=== PATIENT | female | born 1970 | race Caucasian/White ===

== ENCOUNTER 2021-10-07 12:07 | Outpatient (REF) | payer MEDICARE, MEDICAID, SELFPAY ==
[2021-10-07 14:28] LABS: Binax Internal Control QC Valid; Binax Lot number: 9864; Binax Now Covid-19 Ag Negative (Negative)
== END 2021-10-07 12:08 | disposition home or self-care (01) ==
LOC: HO.LAB 12:07
PROVIDERS: Visit Provider Internal Medicine
DX: Z20.822 Contact with and (suspected) exposure to COVID-19 (principal)
CPT/HCPCS: C9803

== ENCOUNTER 2024-11-28 15:59 | Outpatient (REF) | payer MEDICAID, SELFPAY ==
--- OUTSIDE RECORDS SUMMARY | 2024-11-28 19:17 | XMS_ITS | Continuity of Care Document ---
Author Organization [facility] Address [address] [place] [address]- Care Team Providers Care Geochemist Name Role Phone Kianna GARCIA, Madeline Garcia Primary Care Physic andres Encounter [facility] Date(s): 10/03/24 - 11/02/24 [facility] [address], [place] [address] Encounter Type: Triage Allergies, Adverse Reactions, Alerts Substance Criticality Severity Reaction Reaction Severity Status morphine Active Midrin Active Keflex Active Flagyl Active NSAIDs Active Immunizations Given and Recorded Vaccine Date Status Refusal Reason zoster vaccine, inactivated 08/01/22 Recorded SARS-CoV-2 (COVID-19) mRNA BNT-162b2 vac 04/13/21 Recorded SARS-CoV-2 (COVID-19) mRNA BNT-162b2 vac 03/15/21 Recorded Medications Advair HFA 115 mcg / 21 mcg 2 puffs, Inhalation, 2 times a day, # 60 each, 3 Refills, Maintenance, 09/29/23 5:10:00 PM EST, Aerosol, [facility] #[id number], Partial fill upon patient request if the prescription is for a schedule II opioid drug., 2 puffs Inhalation 2 times a day, 175, cm, 09/20/23 13:34:00 EST, Height Start Date: 09/29/23 Status: Ordered Quantity: 60.0 Unit: each Repeat number: 4 Indication: Moderate persistent asthma, uncomplicated Aerochamber Aerochamber, See Instructions, # 1 each, Refills 1, Tot. Refills 1, Maintenance, Use as directed with inhaler. DX J45.9, Asthma, 08/19/22 2:51:00 PM EST, Supply, 175.3, cm, 08/11/22 16:29:00 EST, Height Start Date: 08/19/22 Status: Ordered Quantity: 1.0 Unit: each Repeat number: 2 amLODIPine 5 mg oral tablet 1 tablet, By Mouth, Daily, # 90 tablet, 1 Refills, Maintenance, 09/12/24 4:12:00 PM EST, [facility] #[id number], 175, cm, 04/29/24 12:53:00 EDT, Height Start Date: 09/12/24 Status: Ordered Quantity: 90.0 Unit: tablet Repeat number: 1 cholestyramine 4 gm/5 gm oral powder for reconstitution 1 pack/packet, By Mouth, 2 times a day, # 60 pack/packet, 11 Refills, Maintenance, 03/13/23 9:25:00 AM EDT, REC Powder, [facility]/pharmacy #[id number], 175.3, cm, 01/03/23 14:03:00 EDT, Height Start Date: 03/13/23 Stop Date: 03/07/24 Status: Ordered Quantity: 60.0 Unit: pack/packet Repeat number: 12 diazepam 10 mg oral tablet 10 mg, 1, tablet, By Mouth, 3 times a day, may fill at a lesser amount MA PROCESSING ANALYST 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 Refills 0, Maintenance, 03/12/24 6:28:00 AM EDT, Route to Pharmacy Electronically, [facility] #[id number], 175, cm, 11/29/23 12:13:00 EST, Height Start Date: 03/12/24 Stop Date: 04/09/24 Status: Ordered Quantity: 84.0 Unit: tablet Repeat number: 1 diazepam 10 mg oral tablet 10 mg, 1, tablet, By Mouth, 3 times a day, # 84 tablet, Refills 0, Tot. Refills 0, Maintenance, 09/03/24 12:53:00 PM EST, Route to Pharmacy Electronically, [facility] #[id number], 175, cm, 04/29/24 12:53:00 EDT, Height Start Date: 09/03/24 Stop Date: 10/01/24 Status: Ordered Quantity: 84.0 Unit: tablet Repeat number: 1 Flonase Allergy Relief 50 mcg/inh nasal spray See Instructions, 50 mcg Daily, # 16 Gm, 1 Refills, Maintenance, 07/05/23 8:42:00 PM EDT, [id number], Partial fill upon patient request if the prescription is for a schedule II opioid drug., 175.3, cm, 01/03/23 14:03:00 EDT, Height Start Date: 07/05/23 Status: Ordered Quantity: 16.0 Unit: g Repeat number: 2 Flovent HFA 110 mcg/inh inhalation aerosol 2 puffs, Inhalation, 2 times a day, # 12 Gm, 3 Refills, Maintenance, 02/08/22 2:29:00 PM EDT, Aerosol, [facility]/pharmacy #[id number], Partial fill upon patient request if the prescription is for a schedule II opioid drug., 175.3, cm, 06/02/21 13:48:00 EDT, Height Start Date: 02/08/22 Status: Ordered Quantity: 12.0 Unit: g Repeat number: 4 Golytely - oral powder for reconstitution 240 mL, By Mouth, Every 10 minutes, # 1 each, 0 Refills, Maintenance, 04/29/24 1:19:00 PM EDT, REC Powder, [facility] #[id number], Partial fill upon patient request if the prescription is for a schedule II opioid drug., 240 mL By Mouth Every 10 minutes, 175, cm, 04/29/24 12:53:00 EDT, Height Start Date: 04/29/24 Status: Ordered Quantity: 1.0 Unit: each Repeat number: 1 Humira Pen 40 mg/0.4 mL subcutaneous kit = 40 mg, Subcutaneous Injection, Every 14 days, # 2 each, 11 Refills, Maintenance, 01/31/24 1:18:00 PM EDT, [facility] #[id number], Partial fill upon patient request if the prescription is for a schedule II opioid drug., 175, cm, 11/29/23 12:13:00 EST, Height Start Date: 01/31/24 Status: Ordered Quantity: 2.0 Unit: each Repeat number: 12 hydrochlorothiazide-lisinopril 12.5 mg-20 mg oral tablet 1 tablet, By Mouth, Daily, # 90 tablet, 1 Refills, Maintenance, 09/12/24 4:12:00 PM EST, [facility] #[id number], 90, TAKE 1 TABLET BY MOUTH DAILY, 175, cm, 04/29/24 12:53:00 EDT, Height Start Date: 09/12/24 Status: Ordered Quantity: 90.0 Unit: tablet Repeat number: 1 Lyrica 225 mg oral capsule 1 capsule = 225 mg, By Mouth, 2 times a day, masspat checked DNF: 07/22/2024, # 168 capsule, 1 Refills, Maintenance, 12/30/24 12:21:00 PM EDT, Capsule, [facility] #[id number], 175, cm, 04/29/24 12:53:00 EDT, Height Start Date: 12/30/24 Stop Date: 06/16/25 Status: Ordered Quantity: 168.0 Unit: capsule Repeat number: 2 Lyrica 225 mg oral capsule 1 capsule = 225 mg, By Mouth, 2 times a day, for 84 days, masspat checked DNF: 07/22/2024, # 168 capsule, 1 Refills, Hard Stop 12/30/24 12:21:00 PM EDT, 07/15/24 12:21:00 PM EDT, Capsule, [facility] #[id number], 175, cm, 04/29/24 12:53:00 EDT, Height Start Date: 07/15/24 Stop Date: 12/30/24 Status: Ordered Quantity: 168.0 Unit: capsule Repeat number: 2 methadone 10 mg oral tablet See Instructions, 2 tablet By Mouth in the morning. 1 tablet at lunch time, and 1 tablet at bedtimefor 14 days. Diagnosis: Chronic pain, # 56 tablet, 0 Refills, Maintenance, 10/21/24 12:21:00 PM EST,[facility] #[id number], 175, cm, 04/29/24 12:53:00 EDT, Height Start Date: 10/21/24 Status: Ordered Quantity: 56.0 Unit: tablet Repeat number: 1 Indication: Unspecified abdominal pain oxyCODONE 20 mg oral tablet 1 tablet = 20 mg, By Mouth, 4 times a day, PRN Pain , Moderate, for 14 days, # 56 tablet, 0 Refills, Hard Stop 11/04/24 12:21:00 PM EST, 10/21/24 12:21:00 PM EST, [facility] #[id number], MassPAT checked, 175, cm, 04/29/24 12:53:00 EDT, Height Start Date: 10/21/24 Stop Date: 11/04/24 Status: Ordered Quantity: 56.0 Unit: tablet Repeat number: 1 Indication: Unspecified abdominal pain pantoprazole 40 mg oral delayed release tablet 1 tablet, By Mouth, 2 times a day, # 180 tablet, 3 Refills, Maintenance, 06/19/24 1:33:00 PM EDT, 175, cm, 04/29/24 12:53:00 EDT, Height Start Date: 06/19/24 Status: Ordered Quantity: 180.0 Unit: tablet Repeat number: 4 penciclovir 1% topical cream See Instructions, APPLY TO THE AFFECTED AREA TOPICALLY EVERY 2 HOURS WHILE AWAKE FOR 4 DAYS, # 5 Gm, 0 Refills, Maintenance, 10/03/24 12:50:00 PM EST, [facility] #[id number], 7, APPLY TO THE AFFECTED AREA TOPICALLY EVERY 2 HOURS WHILE AWAKE FOR 4 DAYS, 175, cm, 04/29/24 12:53:00 EDT, Height Start Date: 10/03/24 Status: Ordered Quantity: 5.0 Unit: g Repeat number: 1 sertraline 100 mg oral tablet 1 tablet, By Mouth, Daily, # 90 tablet, 6 Refills, Maintenance, 03/04/24 10:15:00 AM EDT, [facility] #[id number], 175, cm, 11/29/23 12:13:00 EST, Height Start Date: 03/04/24 Status: Ordered Quantity: 90.0 Unit: tablet Repeat number: 1 SUMAtriptan 100 mg oral tablet 1 tablet, By Mouth, Daily, PRN NEEDED FOR MIGRAINE MAY REPEAT DOSE AFTER 2 HOURS UP TO A MAX OF 2, # 9 tablet, 3 Refills, Maintenance, 03/02/23 9:06:00 PM EDT, [facility]/pharmacy #[id number], 175.3, cm, 04/11/23 14:03:00 EDT, Height Start Date: 03/02/23 Status: Ordered Quantity: 9.0 Unit: tablet Repeat number: 4 tubing for nebulizer tubing for nebulizer, See Instructions, # 1 each, Refills 0, Tot. Refills 0, Maintenance, use as directed, 03/06/14 12:03:59 PM EDT, Compound Start Date: 03/06/14 Status: Ordered Quantity: 1.0 Unit: each Repeat number: 1 valACYclovir 500 mg oral tablet 1, tablet, By Mouth, Every 12 hours, # 6 tablet, Refills 3, Maintenance, 10/03/24 12:50:00 PM EST, Route to Pharmacy Electronically, [facility] #[id number], 175, cm, 04/29/24 12:53:00 EDT, Height Start Date: 10/03/24 Stop Date: 10/06/24 Status: Ordered Quantity: 6.0 Unit: tablet Repeat number: 1 Ventolin HFA 108 mcg/inh inhalation aerosol with adapter 2 puffs, Inhalation, Every 4 hours, PRN for wheezing, One for work and one for home, # 2 each, 3 Refills, Maintenance, 07/02/24 3:06:00 PM EDT, Aerosol, [facility] #[id number], Partial fill upon patient request if the prescription is for a schedule II opioid drug., 175, cm, 04/29/24 12:53:00 EDT, Height Start Date: 07/02/24 Status: Ordered Quantity: 2.0 Unit: each Repeat number: 4 Ventolin HFA 108 mcg/inh inhalation aerosol with adapter 2 puffs, Inhalation, Every 4 hours, # 2 each, 1 Refills, Soft Stop, 07/06/22 6:28:00 AM EDT, [facility]/pharmacy #[id number], 175.3, cm, 05/05/22 16:51:00 EDT, Height Start Date: 07/06/22 Status: Ordered Quantity: 2.0 Unit: each Repeat number: 2 Vitamin D3 50,000 intl units oral capsule 1 capsule, By Mouth, Every week, # 4 capsule, 5 Refills, Maintenance, 08/28/24 6:38:00 AM EST, [facility] #[id number], 175, cm, 04/29/24 12:53:00 EDT, Height Start Date: 08/28/24 Status: Ordered Quantity: 4.0 Unit: capsule Repeat number: 6 Problem List Condition Confirmation Course Effective Dates Status Health Status Informant Acute conjunctivitis, right eye Confirmed Active Allergic rhinitis Confirmed Active Anxiety 1 Confirmed Active Asthma Confirmed Active Blurry vision Confirmed Active Cervical radiculopathy Confirmed Active Chronic pain 2, 3, 4, 5 Confirmed Active Community acquired pneumonia of lower lobe of lung Confirmed Active Community acquired pneumonia Confirmed Active CAP (community acquired pneumonia) Confirmed Active Chronic, continuous use of opioids Confirmed Active Crohn's disease (HCC) 6 Confirmed Active Essential hypertension 7 Confirmed Active Family history of brain aneurysm Confirmed Active Chronic fatigue Confirmed Active Fibromyalgia Confirmed Active JONAH (generalized anxiety disorder) Confirmed Active Headache Confirmed Active Hypertriglyceridemia Confirmed Active Ileostomy (HCC) 8 Confirmed Active Left-sided weakness Confirmed Active Lesion of nose Confirmed Active Anxiety and depression Confirmed Active Moderate persistent asthma Confirmed Active Actinic keratoses Confirmed Active Multiple joint pain Confirmed Active Obese class I Confirmed Active Persistent depressive disorder Confirmed Active Tinnitus Confirmed Active Vertigo Confirmed Active 1Bangelita Lubin, therapist 2managed by Dr Stratton 3Jeliel Veronica NP pain management at [facility] 4opioids since 2006, 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 6Dr [facility] 7since PI [id number]/13 Social History Social History Type Response Smoking Status Former smoker; Other : quit 2011; entered on: 05/27/14 Sex Female Sex Representation Female (finding) Patient Care team information Care Team Personnel Name: Kianna GARCIA, Madeline Garcia Position: [facility] Physician - Primary Care Member Role: PCP Address: [address] [place] [phone]- Telecom: Name: Theresa Clinton NP Position: [facility] Associate Professional Member Role: Primary Care Nurse Address: [address] [place] [address] Drive [address] [place] [address]- Telecom: Name: Jaiden Estevez RN Position: [facility] RN Member Role: Primary Care Nurse Name: Perlita Acevedo RN Position: [facility] CLARISSE RN W/OE and Tasks Member Role: Primary Care Nurse Name: Lety Gutierrez RN Position: [facility] AMB Nurse Member Role: Primary Care Nurse Care Team Related Persons Name: VESTA STAFFORD Name: RUY LOUISE Name: ERIN GLEASON Insurance Providers Guarantor name: [facility] Information #: 1 Payer: [facility] Member Number: NA Policy Number: NA Group Number: NA
--- OUTSIDE RECORDS SUMMARY | 2024-11-28 19:17 | XMS_ITS | Continuity of Care Document ---
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 Date(s): 10/21/24 - 11/20/24 [facility] [address] [place] [address] Encounter Type: Triage Allergies, Adverse Reactions, Alerts Substance Criticality Severity Reaction Reaction Severity Status morphine Active Midrin Active Keflex Active NSAIDs Active Flagyl Active Immunizations Given and Recorded Vaccine Date Status Refusal Reason zoster vaccine, inactivated 08/01/22 Recorded SARS-CoV-2 (COVID-19) mRNA BNT-162b2 vac 04/13/21 Recorded SARS-CoV-2 (COVID-19) mRNA BNT-162b2 vac 03/15/21 Recorded Medications Advair HFA 115 mcg / 21 mcg 2 puffs, Inhalation, 2 times a day, # 60 each, 3 Refills, Maintenance, 09/29/23 5:10:00 PM EST, Aerosol, [facility] #[id number], Partial fill upon patient request if the prescription is for a schedule II opioid drug., 2 puffs Inhalation 2 times a day, 175, cm, 09/20/23 13:34:00 EST, Height Start Date: 09/29/23 Status: Ordered Quantity: 60.0 Unit: each Repeat number: 4 Indication: Moderate persistent asthma, uncomplicated Advair HFA 115 mcg / 21 mcg See Instructions, USE 2 INHALATIONS BY MOUTH TWICE DAILY, # 12 Gm, 0 Refills, Maintenance, 11/04/24 8:09:00 PM EST, [facility] #[id number], 30, USE 2 INHALATIONS BY MOUTH TWICE DAILY, 175, cm, 04/29/24 12:53:00 EDT, Height Start Date: 11/04/24 Status: Ordered Quantity: 12.0 Unit: g Repeat number: 1 Aerochamber Aerochamber, See Instructions, # 1 each, [...] 1 Refills, Maintenance, 09/12/24 4:12:00 PM EST, [facility] #[id number], 175, cm, 04/29/24 12:53:00 EDT, Height Start Date: 09/12/24 Status: Ordered Quantity: 90.0 Unit: tablet Repeat number: 1 cholestyramine 4 gm/5 gm oral powder for reconstitution 1 pack/packet, By Mouth, 2 times a day, # 60 pack/packet, 11 Refills, Maintenance, 03/13/23 9:25:00 AM EDT, REC Powder, [facility]/pharmacy #[id number], 175.3, cm, 01/03/23 14:03:00 EDT, Height Start Date: 03/13/23 Stop Date: 03/07/24 Status: Ordered Quantity: 60.0 Unit: pack/packet Repeat number: 12 diazepam 10 mg oral tablet 10 mg, 1, tablet, By Mouth, 3 times a day, may fill at a lesser amount [place] ABRASIVES SALES 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 Refills 0, Maintenance, 03/12/24 6:28:00 AM EDT, Route to Pharmacy Electronically, [facility] #[id number], 175, cm, 11/29/23 12:13:00 EST, Height Start Date: 03/12/24 Stop Date: 04/09/24 Status: Ordered Quantity: 84.0 Unit: tablet Repeat number: 1 diazepam 10 mg oral tablet 10 mg, 1, tablet, By Mouth, 3 times a day, # 84 tablet, Refills 0, Tot. Refills 0, Maintenance, 09/03/24 12:53:00 PM EST, Route to Pharmacy Electronically, [facility] #[id number], 175, cm, 04/29/24 12:53:00 EDT, Height Start Date: 09/03/24 Stop Date: 10/01/24 Status: Ordered Quantity: 84.0 Unit: tablet Repeat number: 1 Flonase Allergy Relief 50 mcg/inh nasal spray See Instructions, 50 mcg Daily, # 16 Gm, 1 Refills, Maintenance, 07/05/23 8:42:00 PM EDT, [facility]/pharmacy #[id number], Partial fill upon patient request if the prescription is for a schedule II opioid drug., 175.3, cm, 01/03/23 14:03:00 EDT, Height Start Date: 07/05/23 Status: Ordered Quantity: 16.0 Unit: g Repeat number: 2 Flovent HFA 110 mcg/inh inhalation aerosol 2 puffs, Inhalation, 2 times a day, # 12 Gm, 3 Refills, Maintenance, 02/08/22 2:29:00 PM EDT, Aerosol, [facility]/pharmacy #[id number], Partial fill upon patient request if the prescription is for a schedule II opioid drug., 175.3, cm, 06/02/21 13:48:00 EDT, Height Start Date: 02/08/22 Status: Ordered Quantity: 12.0 Unit: g Repeat number: 4 Golytely - oral powder for reconstitution 240 mL, By Mouth, Every 10 minutes, # 1 each, 0 Refills, Maintenance, 04/29/24 1:19:00 PM EDT, REC Powder, [facility] #[id number], Partial fill upon patient request if the [...] 11 Refills, Maintenance, 01/31/24 1:18:00 PM EDT, [facility] #[id number], Partial fill upon patient request if the prescription is for a schedule II opioid drug., 175, cm, 11/29/23 12:13:00 EST, Height Start Date: 01/31/24 Status: Ordered Quantity: 2.0 Unit: each Repeat number: 12 hydrochlorothiazide-lisinopril 12.5 mg-20 mg oral tablet 1 tablet, By Mouth, Daily, # 90 tablet, 1 Refills, Maintenance, 09/12/24 4:12:00 PM EST, [facility] #[id number], 90, TAKE 1 TABLET BY MOUTH DAILY, 175, cm, 04/29/24 12:53:00 EDT, Height Start Date: 09/12/24 Status: Ordered Quantity: 90.0 Unit: tablet Repeat number: 1 Lyrica 225 mg oral capsule 1 capsule = 225 mg, By Mouth, 2 times a day, masspat checked DNF: 07/22/2024, # 168 capsule, 1 Refills, Maintenance, 12/30/24 12:21:00 PM EDT, Capsule, [facility] #[id number], 175, cm, 04/29/24 12:53:00 EDT, Height Start Date: 12/30/24 Stop Date: 06/16/25 Status: Ordered Quantity: 168.0 Unit: capsule Repeat number: 2 Lyrica 225 mg oral capsule 1 capsule = 225 mg, By Mouth, 2 times a day, for 84 days, masspat checked DNF: 07/22/2024, # 168 capsule, 1 Refills, Hard Stop 12/30/24 12:21:00 PM EDT, 07/15/24 12:21:00 PM EDT, Capsule, [facility] #[id number], 175, cm, 04/29/24 12:53:00 EDT, Height Start Date: 07/15/24 Stop Date: 12/30/24 Status: Ordered Quantity: 168.0 Unit: capsule Repeat number: 2 methadone 10 mg oral tablet See Instructions, 2 tablet By Mouth in the morning. 1 tablet at lunch time, and 1 tablet at bedtimefor 14 days. Diagnosis: Chronic pain, # 56 tablet, 0 Refills, Maintenance, 2/24/25 1:37:00 PM EST, [facility] #[id number], 175, cm, 04/29/24 12:53:00 EDT, Height Start Date: 11/18/24 Status: Ordered Quantity: 56.0 Unit: tablet Repeat number: 1 Indication: Unspecified abdominal pain oxyCODONE 20 mg oral tablet 1 tablet = 20 mg, By Mouth, 4 times a day, PRN Pain , Moderate, for 14 days, # 56 tablet, 0 Refills, Hard Stop 12/02/24 1:39:00 PM EDT, 11/18/24 1:39:00 PM EST, [facility] #[id number], MassPAT checked, 175, cm, 04/29/24 12:53:00 EDT, Height Start Date: 11/18/24 Stop Date: 12/02/24 Status: Ordered Quantity: 56.0 Unit: tablet Repeat [...] 0 Refills, Maintenance, 10/03/24 12:50:00 PM EST, [facility] #[id number], 7, APPLY TO THE AFFECTED AREA TOPICALLY EVERY 2 HOURS WHILE AWAKE FOR 4 DAYS, 175, cm, 04/29/24 12:53:00 EDT, Height Start Date: 10/03/24 Status: Ordered Quantity: 5.0 Unit: g Repeat number: 1 sertraline 100 mg oral tablet 1 tablet, By Mouth, Daily, # 90 tablet, 6 Refills, Maintenance, 03/04/24 10:15:00 AM EDT, [facility] #[id number], 175, cm, 11/29/23 12:13:00 EST, Height Start Date: 03/04/24 Status: Ordered Quantity: 90.0 Unit: tablet Repeat number: 1 SUMAtriptan 100 mg oral tablet 1 tablet, By Mouth, Daily, PRN NEEDED FOR MIGRAINE MAY REPEAT DOSE AFTER 2 HOURS UP TO A MAX OF 2, # 9 tablet, 3 Refills, Maintenance, 03/02/23 9:06:00 PM EDT, [facility]/pharmacy #[id number], 175.3, cm, 01/03/23 14:03:00 EDT, Height Start Date: 03/02/23 Status: [...] 12:50:00 PM EST, Route to Pharmacy Electronically, [facility] #[id number], 175, cm, 04/29/24 12:53:00 EDT, Height Start Date: 10/03/24 Stop Date: 10/06/24 Status: Ordered Quantity: 6.0 Unit: tablet Repeat number: 1 Ventolin HFA 108 mcg/inh inhalation aerosol with adapter 2 puffs, Inhalation, Every 4 hours, PRN NEEDED FOR WHEEZING 1 FOR WORK AND 1 FOR HOME, # 36 Gm, 3 Refills, Maintenance, 11/11/24 1:07:00 PM EST, [facility] #[id number], 175, cm, 04/29/24 12:53:00 EDT, Height Start Date: 11/11/24 Status: Ordered Quantity: 36.0 Unit: g Repeat number: 1 Vitamin D3 50,000 intl units oral capsule 1 capsule, By Mouth, Every week, # 4 capsule, 5 Refills, Maintenance, 08/28/24 6:38:00 AM EST, [facility] #[id number], 175, cm, 04/29/24 12:53:00 EDT, Height Start [...] 1Bangelita Lubin, therapist 2managed by Dr Stratton 3Juligayatri Veronica NP pain management at [facility] 4opioids since 2006, 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 6Dr [facility]ile[facility] 7since PI [id number]/13 Social History Social History Type Response Smoking Status Former smoker; Other : quit 2011; entered on: 05/27/14 Sex Female Sex Representation Female (finding) Patient Care team information Care Team Personnel Name: Kianna GARCIA, Madeline Garcia Position: [facility] Physician - Primary Care Member Role: PCP Address: [address] [place] [phone]- Telecom: Name: Theresa Clinton NP Position: [facility] Associate Professional Member Role: Primary Care Nurse Address: [address] [place] [address] Drive [address] [place] [address]- Telecom: Name: Jaiden Estevez RN Position: [facility] RN Member Role: Primary Care Nurse Name: Perlita Acevedo RN Position: [facility] ED RN W/OE and Tasks Member Role: Primary Care Nurse Name: Lety Gutierrez RN Position: [facility] AMB Nurse Member Role: Primary Care Nurse Care Team Related Persons Name: VESTA STAFFORD Name: RUY LOUISE Name: ERIN GLEASON Insurance Providers Guarantor name: [facility] [employer] Plan Information #: 1 Payer: [facility] Member Number: NA Policy Number: NA Group Number: NA
--- OUTSIDE RECORDS SUMMARY | 2024-11-28 19:17 | XMS_ITS | Continuity of Care Document ---
Author Organization [facility] Address [address] [place] [address]- Care Team Providers Care Probate Paralegal Name Role Phone Kianna GARCIA, Madeline Garcia Primary Care Physic andres [place] [facility] [place]24/24 [facility] [address] [place], [place] [address] Encounter Type: Triage Allergies, Adverse Reactions, Alerts Substance Criticality Severity Reaction Reaction Severity Status morphine Active Midrin Active NSAIDs Active Keflex Active Flagyl Active Immunizations Given and Recorded Vaccine Date Status Refusal Reason zoster vaccine, inactivated 08/01/22 Recorded SARS-CoV-2 (COVID-19) mRNA BNT-162b2 vac 04/13/21 Recorded SARS-CoV-2 (COVID-19) mRNA BNT-162b2 vac 03/15/21 Recorded Medications Advair HFA 115 mcg / 21 mcg 2 puffs, Inhalation, 2 times a day, # 60 each, 3 Refills, Maintenance, 09/29/23 5:10:00 PM EST, Aerosol, [facility] #[id number], Partial fill upon patient request if the [...] 0 Refills, Maintenance, 11/04/24 8:09:00 PM EST, [facility] #[id number], 30, USE 2 INHALATIONS BY MOUTH TWICE [...] 1 Refills, Maintenance, 09/12/24 4:12:00 PM EST, [facility] #[id number], 175, cm, 04/29/24 12:53:00 EDT, Height Start Date: 09/12/24 Status: Ordered Quantity: 90.0 Unit: tablet Repeat number: 1 cholestyramine 4 gm/5 gm oral powder for reconstitution 1 pack/packet, By Mouth, 2 times a day, # 60 pack/packet, 11 Refills, Maintenance, 03/13/23 9:25:00 AM EDT, REC Powder, [facility]/pharmacy #[id number], 175.3, cm, 01/03/23 14:03:00 EDT, Height Start Date: 03/13/23 Stop Date: 03/07/24 Status: Ordered Quantity: 60.0 Unit: pack/packet Repeat number: 12 diazepam 10 mg oral tablet 10 mg, 1, tablet, By Mouth, 3 times a day, may fill at a lesser amount [place] [employer] 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 Refills 0, Maintenance, 03/12/24 6:28:00 AM EDT, Route to Pharmacy Electronically, [facility] #[id number], 175, cm, 11/29/23 12:13:00 EST, Height Start Date: 03/12/24 Stop Date: 04/09/24 Status: Ordered Quantity: 84.0 Unit: tablet Repeat number: 1 diazepam 10 mg oral tablet 10 mg, 1, tablet, By Mouth, 3 times a day, # 84 tablet, Refills 0, Tot. Refills 0, Maintenance, 09/03/24 12:53:00 PM EST, Route to Pharmacy Electronically, [facility] #[id number], 175, cm, 04/29/24 12:53:00 EDT, Height Start Date: 09/03/24 Stop Date: 10/01/24 Status: Ordered Quantity: 84.0 Unit: tablet Repeat number: 1 Flonase Allergy Relief 50 mcg/inh nasal spray See Instructions, 50 mcg Daily, # 16 Gm, 1 Refills, Maintenance, 07/05/23 8:42:00 PM EDT, [facility]/pharmacy #[id number], Partial fill upon patient request if the prescription is for a schedule II opioid drug., 175.3, cm, 01/03/23 14:03:00 EDT, Height Start Date: 07/05/23 Status: Ordered Quantity: 16.0 Unit: g Repeat number: 2 Flovent HFA 110 mcg/inh inhalation aerosol 2 puffs, Inhalation, 2 times a day, # 12 Gm, 3 Refills, Maintenance, 02/08/22 2:29:00 PM EDT, Aerosol, [facility]/pharmacy #[id number], Partial fill upon patient request if the prescription is for a schedule II opioid drug., 175.3, cm, 06/02/21 13:48:00 EDT, Height Start Date: 02/08/22 Status: Ordered Quantity: 12.0 Unit: g Repeat number: 4 Golytely - oral powder for reconstitution 240 mL, By Mouth, Every 10 minutes, # 1 each, 0 Refills, Maintenance, 04/29/24 1:19:00 PM EDT, REC Powder, [facility] #[id number], Partial fill upon patient request if the [...] 11 Refills, Maintenance, 01/31/24 1:18:00 PM EDT, [facility] #[id number], Partial fill upon patient request if the prescription is for a schedule II opioid drug., 175, cm, 11/29/23 12:13:00 EST, Height Start Date: 01/31/24 Status: Ordered Quantity: 2.0 Unit: each Repeat number: 12 hydrochlorothiazide-lisinopril 12.5 mg-20 mg oral tablet 1 tablet, By Mouth, Daily, # 90 tablet, 1 Refills, Maintenance, 09/12/24 4:12:00 PM EST, [facility] #[id number], 90, TAKE 1 TABLET BY MOUTH DAILY, 175, cm, 04/29/24 12:53:00 EDT, Height Start Date: 09/12/24 Status: Ordered Quantity: 90.0 Unit: tablet Repeat number: 1 Lyrica 225 mg oral capsule 1 capsule = 225 mg, By Mouth, 2 times a day, masspat checked DNF: 07/22/2024, # 168 capsule, 1 Refills, Maintenance, 12/30/24 12:21:00 PM EDT, Capsule, [facility] #[id number], 175, cm, 04/29/24 12:53:00 EDT, Height Start Date: 12/30/24 Stop Date: 06/16/25 Status: Ordered Quantity: 168.0 Unit: capsule Repeat number: 2 Lyrica 225 mg oral capsule 1 capsule = 225 mg, By Mouth, 2 times a day, for 84 days, masspat checked DNF: 07/22/2024, # 168 capsule, 1 Refills, Hard Stop 12/30/24 12:21:00 PM EDT, 07/15/24 12:21:00 PM EDT, Capsule, [facility] #[id number], 175, cm, 04/29/24 12:53:00 EDT, Height Start Date: 07/15/24 Stop Date: 12/30/24 Status: Ordered Quantity: 168.0 Unit: capsule Repeat number: 2 methadone 10 mg oral tablet See Instructions, 2 tablet By Mouth in the morning. 1 tablet at lunch time, and 1 tablet at bedtimefor 14 days. Diagnosis: Chronic pain, # 56 tablet, 0 Refills, Maintenance, 11/18/24 1:37:00 PM EST, [facility] #[id number], 175, cm, 04/29/24 12:53:00 EDT, Height Start Date: 11/18/24 Status: Ordered Quantity: 56.0 Unit: tablet Repeat number: 1 Indication: Unspecified abdominal pain oxyCODONE 20 mg oral tablet 1 tablet = 20 mg, By Mouth, 4 times a day, PRN Pain , Moderate, for 14 days, # 56 tablet, 0 Refills, Hard Stop 12/02/24 1:39:00 PM EDT, 11/18/24 1:39:00 PM EST, [facility] #[id number], MassPAT checked, 175, cm, 04/29/24 12:53:00 EDT, [...] 0 Refills, Maintenance, 10/03/24 12:50:00 PM EST, [facility] #[id number], 7, APPLY TO THE AFFECTED AREA TOPICALLY EVERY 2 HOURS WHILE AWAKE FOR 4 DAYS, 175, cm, 04/29/24 12:53:00 EDT, Height Start Date: 10/03/24 Status: Ordered Quantity: 5.0 Unit: g Repeat number: 1 sertraline 100 mg oral tablet 1 tablet, By Mouth, Daily, # 90 tablet, 6 Refills, Maintenance, 03/04/24 10:15:00 AM EDT, [facility] #[id number], 175, cm, 11/29/23 12:13:00 EST, Height Start Date: 03/04/24 Status: Ordered Quantity: 90.0 Unit: tablet Repeat number: 1 SUMAtriptan 100 mg oral tablet 1 tablet, By Mouth, Daily, PRN NEEDED FOR MIGRAINE MAY REPEAT DOSE AFTER 2 HOURS UP TO A MAX OF 2, # 9 tablet, 3 Refills, Maintenance, 03/02/23 9:06:00 PM EDT, [facility]/pharmacy #[id number], 175.3, cm, 01/03/23 14:03:00 EDT, Height [...] 12:50:00 PM EST, Route to Pharmacy Electronically, [facility] #[id number], 175, cm, 04/29/24 12:53:00 EDT, Height Start Date: 10/03/24 Stop Date: 10/06/24 Status: Ordered Quantity: 6.0 Unit: tablet Repeat number: 1 Ventolin HFA 108 mcg/inh inhalation aerosol with adapter 2 puffs, Inhalation, Every 4 hours, PRN NEEDED FOR WHEEZING 1 FOR WORK AND 1 FOR HOME, # 36 Gm, 3 Refills, Maintenance, 11/11/24 1:07:00 PM EST, [facility] #[id number], 175, cm, 04/29/24 12:53:00 EDT, Height Start Date: 11/11/24 Status: Ordered Quantity: 36.0 Unit: g Repeat number: 1 Vitamin D3 50,000 intl units oral capsule 1 capsule, By Mouth, Every week, # 4 capsule, 5 Refills, Maintenance, 08/28/24 6:38:00 AM EST, [facility] #[id number], 175, cm, 04/29/24 12:53:00 EDT, Height Start [...] related to Crohn's [facility] 7since [facility] [id number] 810/13 Social History Social History Type Response Smoking Status Former smoker; Other : quit 2011; entered on: 05/27/14 Sex Female Sex Representation Female (finding) Patient Care team information Care Team Personnel Name: Kianna GARCIA, Madeline Garcia Position: [facility] Physician - Primary Care Member Role: PCP Address: [address] [place] [address]- Telecom: Name: Theresa Clinton NP Position: [facility] Associate Professional Member Role: Primary Care Nurse Address: [address] [place] [address] Drive [address] [place] [address]- Telecom: Name: Jaiden Estevez RN Position: [facility] RN Member Role: Primary Care Nurse Name: Perlita Acevedo RN Position: [facility] ED RN W/OE and Tasks Member Role: Primary Care Nurse Name: Lety Gutierrez RN Position: [facility] AMB Nurse Member Role: Primary Care Nurse Care Team Related Persons Name: VESTA STAFFORD Name: RUY LOUISE Name: ERIN GLEASON Insurance Providers Guarantor name: [facility] Information #: 1 Payer: [facility] Member Number: NA Policy Number: NA Group Number: NA
--- OUTSIDE RECORDS SUMMARY | 2024-11-28 19:18 | XMS_ITS | Continuity of Care Document ---
Author Organization [facility] Address [address] [place] [address]- [facility] Name Relationship Address Phone ERIN GLEASON father Unknown Unavailable RUY LOUISE spouse Unknown Unavailable ASAD FERRERA Personal Relationship Unknown Unava ilable COUSINEAUVESTA sibling Unknown Unavailabl e BONNIE GLEASON mother Unknown Unavailable Care Team Providers Care Energy Auditor Name Role Phone Kianna GARCIA, Madeline Garcia Primary Care Physic andres Encounter [facility] [place] Date(s): 10/07/24 - 11/06/24 [facility] [address] [place] [address] Encounter Type: Triage Allergies, Adverse Reactions, Alerts [...] Refills, Maintenance, 09/29/23 5:10:00 PM EST, Aerosol, [facility] #[id number], Partial fill upon patient request if the [...] 0 Refills, Maintenance, 11/04/24 8:09:00 PM EST, [facility] #[id number], 30, USE 2 INHALATIONS BY MOUTH TWICE [...] 1 Refills, Maintenance, 09/12/24 4:12:00 PM EST, [facility] #[id number], 175, cm, 04/29/24 12:53:00 EDT, Height Start Date: 09/12/24 Status: Ordered Quantity: 90.0 Unit: tablet Repeat number: 1 cholestyramine 4 gm/5 gm oral powder for reconstitution 1 pack/packet, By Mouth, 2 times a day, # 60 pack/packet, 11 Refills, Maintenance, 03/13/23 9:25:00 AM EDT, REC Powder, [facility] #[id number], 175.3, cm, 01/03/23 14:03:00 EDT, Height Start Date: 03/13/23 Stop Date: 03/07/24 Status: Ordered Quantity: 60.0 Unit: pack/packet Repeat number: 12 diazepam 10 mg oral tablet 10 mg, 1, tablet, By Mouth, 3 times a day, may fill at a lesser amount [place] [employer] SH[employer] SERVICES 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 Refills 0, Maintenance, 03/12/24 6:28:00 AM EDT, Route to Pharmacy Electronically, [facility] #[id number], 175, cm, 11/29/23 12:13:00 EST, Height Start Date: 03/12/24 Stop Date: 04/09/24 Status: Ordered Quantity: 84.0 Unit: tablet Repeat number: 1 diazepam 10 mg oral tablet 10 mg, 1, tablet, By Mouth, 3 times a day, # 84 tablet, Refills 0, Tot. Refills 0, Maintenance, 09/03/24 12:53:00 PM EST, Route to Pharmacy Electronically, [facility] #[id number], 175, cm, 04/29/24 12:53:00 EDT, Height Start Date: 09/03/24 Stop Date: 10/01/24 Status: Ordered Quantity: 84.0 Unit: tablet Repeat number: 1 Flonase Allergy Relief 50 mcg/inh nasal spray See Instructions, 50 mcg Daily, # 16 Gm, 1 Refills, Maintenance, 07/05/23 8:42:00 PM EDT, [facility] #[id number], Partial fill upon patient request if the prescription is for a schedule II opioid drug., 175.3, cm, 01/03/23 14:03:00 EDT, Height Start Date: 07/05/23 Status: Ordered Quantity: 16.0 Unit: g Repeat number: 2 Flovent HFA 110 mcg/inh inhalation aerosol 2 puffs, Inhalation, 2 times a day, # 12 Gm, 3 Refills, Maintenance, 02/08/22 2:29:00 PM EDT, Aerosol, [facility] #[id number], Partial fill upon patient request if the prescription is for a schedule II opioid drug., 175.3, cm, 06/02/21 13:48:00 EDT, Height Start Date: 02/08/22 Status: Ordered Quantity: 12.0 Unit: g Repeat number: 4 Golytely - oral powder for reconstitution 240 mL, By Mouth, Every 10 minutes, # 1 each, 0 Refills, Maintenance, 04/29/24 1:19:00 PM EDT, REC Powder, [facility] #[id number], Partial fill upon patient request if the [...] 11 Refills, Maintenance, 01/31/24 1:18:00 PM EDT, [facility] #[id number], Partial fill upon patient request if the prescription is for a schedule II opioid drug., 175, cm, 11/29/23 12:13:00 EST, Height Start Date: 01/31/24 Status: Ordered Quantity: 2.0 Unit: each Repeat number: 12 hydrochlorothiazide-lisinopril 12.5 mg-20 mg oral tablet 1 tablet, By Mouth, Daily, # 90 tablet, 1 Refills, Maintenance, 09/12/24 4:12:00 PM EST, [facility] #[id number], 90, TAKE 1 TABLET BY MOUTH DAILY, 175, cm, 04/29/24 12:53:00 EDT, Height Start Date: 09/12/24 Status: Ordered Quantity: 90.0 Unit: tablet Repeat number: 1 Lyrica 225 mg oral capsule 1 capsule = 225 mg, By Mouth, 2 times a day, masspat checked DNF: 07/22/2024, # 168 capsule, 1 Refills, Maintenance, 12/30/24 12:21:00 PM EDT, Capsule, [facility] #[id number], 175, cm, 04/29/24 12:53:00 EDT, Height Start Date: 12/30/24 Stop Date: 06/16/25 Status: Ordered Quantity: 168.0 Unit: capsule Repeat number: 2 Lyrica 225 mg oral capsule 1 capsule = 225 mg, By Mouth, 2 times a day, for 84 days, masspat checked DNF: 07/22/2024, # 168 capsule, 1 Refills, Hard Stop 12/30/24 12:21:00 PM EDT, 07/15/24 12:21:00 PM EDT, Capsule, [facility] #[id number], 175, cm, 04/29/24 12:53:00 EDT, Height Start Date: 07/15/24 Stop Date: 12/30/24 Status: Ordered Quantity: 168.0 Unit: capsule Repeat number: 2 methadone 10 mg oral tablet See Instructions, 2 tablet By Mouth in the morning. 1 tablet at lunch time, and 1 tablet at bedtimefor 14 days. Diagnosis: Chronic pain, # 56 tablet, 0 Refills, Maintenance, 2/10/25 8:11:00 AM EST, [facility] #[id number], 175, cm, 04/29/24 12:53:00 EDT, Height Start Date: 11/04/24 Status: Ordered Quantity: 56.0 Unit: tablet Repeat number: 1 Indication: Unspecified abdominal pain oxyCODONE 20 mg oral tablet 1 tablet = 20 mg, By Mouth, 4 times a day, PRN Pain , Moderate, for 14 days, # 56 tablet, 0 Refills, Hard Stop 11/18/24 12:21:00 PM EST, 11/04/24 12:21:00 PM EST, [facility] #[id number], MassPAT checked, 175, cm, 04/29/24 12:53:00 EDT, Height Start Date: 11/04/24 Stop Date: 11/18/24 Status: Ordered Quantity: 56.0 Unit: [...] 0 Refills, Maintenance, 10/03/24 12:50:00 PM EST, [facility] #[id number], 7, APPLY TO THE AFFECTED AREA TOPICALLY EVERY 2 HOURS WHILE AWAKE FOR 4 DAYS, 175, cm, 04/29/24 12:53:00 EDT, Height Start Date: 10/03/24 Status: Ordered Quantity: 5.0 Unit: g Repeat number: 1 sertraline 100 mg oral tablet 1 tablet, By Mouth, Daily, # 90 tablet, 6 Refills, Maintenance, 03/04/24 10:15:00 AM EDT, [facility] #[id number], 175, cm, 11/29/23 12:13:00 EST, Height Start Date: 03/04/24 Status: Ordered Quantity: 90.0 Unit: tablet Repeat number: 1 SUMAtriptan 100 mg oral tablet 1 tablet, By Mouth, Daily, PRN NEEDED FOR MIGRAINE MAY REPEAT DOSE AFTER 2 HOURS UP TO A MAX OF 2, # 9 tablet, 3 Refills, Maintenance, 03/02/23 9:06:00 PM EDT, [facility] #[id number], 175.3, cm, 01/03/23 14:03:00 EDT, [...] 12:50:00 PM EST, Route to Pharmacy Electronically, [facility] #[id number], 175, cm, 04/29/24 12:53:00 EDT, Height Start Date: 10/03/24 Stop Date: 10/06/24 Status: Ordered Quantity: 6.0 Unit: tablet Repeat number: 1 Ventolin HFA 108 mcg/inh inhalation aerosol with adapter 2 puffs, Inhalation, Every 4 hours, PRN for wheezing, One for work and one for home, # 2 each, 3 Refills, Maintenance, 07/02/24 3:06:00 PM EDT, Aerosol, [facility] #[id number], Partial fill upon patient request if the prescription is for a schedule II opioid drug., 175, cm, 04/29/24 12:53:00 EDT, Height Start Date: 07/02/24 Status: Ordered Quantity: 2.0 Unit: each Repeat number: 4 Ventolin HFA 108 mcg/inh inhalation aerosol with adapter 2 puffs, Inhalation, Every 4 hours, # 2 each, 1 Refills, Soft Stop, 07/06/22 6:28:00 AM EDT, [facility] #[id number], 175.3, cm, 05/05/22 16:51:00 EDT, Height Start Date: 07/06/22 Status: Ordered Quantity: 2.0 Unit: each Repeat number: 2 Vitamin D3 50,000 intl units oral capsule 1 capsule, By Mouth, Every week, # 4 capsule, 5 Refills, Maintenance, 08/28/24 6:38:00 AM [facility] #[id number], 175, cm, 04/29/24 12:53:00 EDT, Height Start [...] related to Crohn's [facility] 7since [facility] [id number] 810/13 Social History Social History Type Response Smoking Status Former smoker; Other : quit 2011; entered on: 05/27/14 Sex Female Sex Representation Female (finding) Patient Care team information Care Team Personnel Name: Kianna GARCIA, Madeline Garcia Position: [facility] Physician - Primary Care Member Role: PCP Address: [address] [place] [address]- [place] Telecom: Name: Theresa Clinton NP Position: [facility] Associate Professional Member Role: Primary Care Nurse Address: [address] [place] [address] Drive [address] [place] [address]- [place] Tele[employer]: Name: Jaiden Estevez RN Position: [facility] RN Member Role: Primary Care Nurse Name: Perlita Acevedo RN Position: [facility] ED RN W/OE and Tasks Member Role: Primary Care Nurse Name: Lety Gutierrez RN Position: [facility] AMB Nurse Member Role: Primary Care Nurse Care Team Related Persons Name: VESTA STAFFORD Name: RUY LOUISE Name: ERIN GLEASON Insurance Providers Guarantor name: [facility] Plan Information #: 1 Payer: [facility] Member Number: NA Policy Number: NA Group Number: NA
--- OUTSIDE RECORDS SUMMARY | 2024-11-28 19:18 | XMS_ITS | Continuity of Care Document ---
Author Organization [facility] Address [address] [place] [address]- [facility] Name Relationship Address Phone ERIN GLEASON father Unknown Unavailable RUY LOUISE spouse Unknown Unavailable ASAD FERRERA Personal Relationship Unknown Unava ilable COUSINEAVESTA Aguilar sibling Unknown Unavailabl e BONNIE GLEASON mother Unknown Unavailable Care Team Providers Care Bung Remover Name Role Phone Kianna GARCIA, Madeline Garcia Primary Care Physic andres [place] [facility] [place]/21/24 [place] 11/20/24 [facility] [address] [place] [address] Encounter Type: Triage Allergies, Adverse Reactions, Alerts [...] Refills, Maintenance, 09/29/23 5:10:00 PM EST, Aerosol, [facility] #[id number], Partial fill upon patient request if the [...] 0 Refills, Maintenance, 11/04/24 8:09:00 PM EST, [facility] #[id number], 30, USE 2 INHALATIONS BY MOUTH TWICE [...] 1 Refills, Maintenance, 09/12/24 4:12:00 PM EST, [facility] #[id number], 175, cm, 04/29/24 12:53:00 EDT, Height Start Date: 09/12/24 Status: Ordered Quantity: 90.0 Unit: tablet Repeat number: 1 cholestyramine 4 gm/5 gm oral powder for reconstitution 1 pack/packet, By Mouth, 2 times a day, # 60 pack/packet, 11 Refills, Maintenance, 03/13/23 9:25:00 AM EDT, REC Powder, [facility]/pharmacy #[id number], 175.3, cm, 01/03/23 14:03:00 EDT, Height Start Date: 03/13/23 Stop Date: 03/07/24 Status: Ordered Quantity: 60.0 Unit: pack/packet Repeat number: 12 diazepam 10 mg oral tablet 10 mg, 1, tablet, By Mouth, 3 times a day, may fill at a lesser amount MA FITTING ROOM ASSOCIATE 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 Refills 0, Maintenance, 03/12/24 6:28:00 AM EDT, Route to Pharmacy Electronically, [facility] #[id number], 175, cm, 11/29/23 12:13:00 EST, Height Start Date: 03/12/24 Stop Date: 04/09/24 Status: Ordered Quantity: 84.0 Unit: tablet Repeat number: 1 diazepam 10 mg oral tablet 10 mg, 1, tablet, By Mouth, 3 times a day, # 84 tablet, Refills 0, Tot. Refills 0, Maintenance, 09/03/24 12:53:00 PM EST, Route to Pharmacy Electronically, [facility] #[id number], 175, cm, 04/29/24 12:53:00 EDT, Height Start Date: 09/03/24 Stop Date: 10/01/24 Status: Ordered Quantity: 84.0 Unit: tablet Repeat number: 1 Flonase Allergy Relief 50 mcg/inh nasal spray See Instructions, 50 mcg Daily, # 16 Gm, 1 Refills, Maintenance, 07/05/23 8:42:00 PM EDT, [facility]/pharmacy #[id number], Partial fill upon patient request if the prescription is for a schedule II opioid drug., 175.3, cm, 01/03/23 14:03:00 EDT, Height Start Date: 07/05/23 Status: Ordered Quantity: 16.0 Unit: g Repeat number: 2 Flovent HFA 110 mcg/inh inhalation aerosol 2 puffs, Inhalation, 2 times a day, # 12 Gm, 3 Refills, Maintenance, 02/08/22 2:29:00 PM EDT, Aerosol, [facility]/pharmacy #[id number], Partial fill upon patient request if the prescription is for a schedule II opioid drug., 175.3, cm, 06/02/21 13:48:00 EDT, Height Start Date: 02/08/22 Status: Ordered Quantity: 12.0 Unit: g Repeat number: 4 Golytely - oral powder for reconstitution 240 mL, By Mouth, Every 10 minutes, # 1 each, 0 Refills, Maintenance, 04/29/24 1:19:00 PM EDT, REC Powder, [facility] #[id number], Partial fill upon patient request if the [...] 11 Refills, Maintenance, 01/31/24 1:18:00 PM EDT, [facility] #[id number], Partial fill upon patient request if the prescription is for a schedule II opioid drug., 175, cm, 11/29/23 12:13:00 EST, Height Start Date: 01/31/24 Status: Ordered Quantity: 2.0 Unit: each Repeat number: 12 hydrochlorothiazide-lisinopril 12.5 mg-20 mg oral tablet 1 tablet, By Mouth, Daily, # 90 tablet, 1 Refills, Maintenance, 09/12/24 4:12:00 PM EST, [facility] #[id number], 90, TAKE 1 TABLET BY MOUTH DAILY, 175, cm, 04/29/24 12:53:00 EDT, Height Start Date: 09/12/24 Status: Ordered Quantity: 90.0 Unit: tablet Repeat number: 1 Lyrica 225 mg oral capsule 1 capsule = 225 mg, By Mouth, 2 times a day, masspat checked DNF: 07/22/2024, # 168 capsule, 1 Refills, Maintenance, 12/30/24 12:21:00 PM EDT, Capsule, [facility] #[id number], 175, cm, 04/29/24 12:53:00 EDT, Height Start Date: 12/30/24 Stop Date: 06/16/25 Status: Ordered Quantity: 168.0 Unit: capsule Repeat number: 2 Lyrica 225 mg oral capsule 1 capsule = 225 mg, By Mouth, 2 times a day, for 84 days, masspat checked DNF: 07/22/2024, # 168 capsule, 1 Refills, Hard Stop 12/30/24 12:21:00 PM EDT, 07/15/24 12:21:00 PM EDT, Capsule, [facility] #[id number], 175, cm, 04/29/24 12:53:00 EDT, Height Start Date: 07/15/24 Stop Date: 12/30/24 Status: Ordered Quantity: 168.0 Unit: capsule Repeat number: 2 methadone 10 mg oral tablet See Instructions, 2 tablet By Mouth in the morning. 1 tablet at lunch time, and 1 tablet at bedtimefor 14 days. Diagnosis: Chronic pain, # 56 tablet, 0 Refills, Maintenance, 2/24/25 1:37:00 PM EST, [facility] #[id number], 175, cm, 04/29/24 12:53:00 EDT, Height Start Date: 11/18/24 Status: Ordered Quantity: 56.0 Unit: tablet Repeat number: 1 Indication: Unspecified abdominal pain oxyCODONE 20 mg oral tablet 1 tablet = 20 mg, By Mouth, 4 times a day, PRN Pain , Moderate, for 14 days, # 56 tablet, 0 Refills, Hard Stop 12/02/24 1:39:00 PM EDT, 11/18/24 1:39:00 PM EST, [facility] #[id number], MassPAT checked, 175, cm, 04/29/24 12:53:00 EDT, [...] 0 Refills, Maintenance, 10/03/24 12:50:00 PM EST, [facility] #[id number], 7, APPLY TO THE AFFECTED AREA TOPICALLY EVERY 2 HOURS WHILE AWAKE FOR 4 DAYS, 175, cm, 04/29/24 12:53:00 EDT, Height Start Date: 10/03/24 Status: Ordered Quantity: 5.0 Unit: g Repeat number: 1 sertraline 100 mg oral tablet 1 tablet, By Mouth, Daily, # 90 tablet, 6 Refills, Maintenance, 03/04/24 10:15:00 AM EDT, [facility] #[id number], 175, cm, 11/29/23 12:13:00 EST, Height Start Date: 03/04/24 Status: Ordered Quantity: 90.0 Unit: tablet Repeat number: 1 SUMAtriptan 100 mg oral tablet 1 tablet, By Mouth, Daily, PRN NEEDED FOR MIGRAINE MAY REPEAT DOSE AFTER 2 HOURS UP TO A MAX OF 2, # 9 tablet, 3 Refills, Maintenance, 03/02/23 9:06:00 PM EDT, [facility]/pharmacy #[id number], 175.3, cm, 01/03/23 14:03:00 EDT, [...] 12:50:00 PM EST, Route to Pharmacy Electronically, [facility] #[id number], 175, cm, 04/29/24 12:53:00 EDT, Height Start Date: 10/03/24 Stop Date: 10/06/24 Status: Ordered Quantity: 6.0 Unit: tablet Repeat number: 1 Ventolin HFA 108 mcg/inh inhalation aerosol with adapter 2 puffs, Inhalation, Every 4 hours, PRN NEEDED FOR WHEEZING 1 FOR WORK AND 1 FOR HOME, # 36 Gm, 3 Refills, Maintenance, 11/11/24 1:07:00 PM EST, [facility] #[id number], 175, cm, 04/29/24 12:53:00 EDT, Height Start Date: 11/11/24 Status: Ordered Quantity: 36.0 Unit: g Repeat number: 1 Vitamin D3 50,000 intl units oral capsule 1 capsule, By Mouth, Every week, # 4 capsule, 5 Refills, Maintenance, 08/28/24 6:38:00 AM EST, [facility] #[id number], 175, cm, 04/29/24 12:53:00 EDT, Height Start [...] to Crohn's [facility] 7since PI [id number] 810/13 Social History Social History Type Response Smoking Status Former smoker; Other : quit 2011; entered on: 05/27/14 Sex Female Sex Representation Female (finding) Patient Care team information Care Team Personnel Name: Kianna GARCIA, Madeline Garcia Position: [facility] Physician - Primary Care Member Role: PCP Address: [address] [place] [id number]- Telecom: Name: Theresa Clinton NP Position: [facility] Associate Professional Member Role: Primary Care Nurse Address: [address] [place] [address] Drive [address] [place] [address]- Telecom: Name: Jaiden Estevez RN Position: [facility] RN Member Role: Primary Care Nurse Name: Perlita Acevedo RN Position: [facility] ED RN W/OE and Tasks Member Role: Primary Care Nurse Name: Lety Gutierrez RN Position: [facility] AMB Nurse Member Role: Primary Care Nurse Care Team Related Persons Name: VESTA STAFFORD Name: RUY LOUISE Name: ERIN GLEASON Insurance Providers Guarantor name: [facility] [employer] Plan Information #: 1 Payer: [facility] [place] [facility] Member Number: NA Policy Number: NA Group Number: NA
--- OUTSIDE RECORDS SUMMARY | 2024-11-28 19:18 | XMS_ITS | Continuity of Care Document ---
Author Organization [facility] Address [address] [place] [address]- [facility] Name Relationship Address Phone ERIN GLEASON father Unknown Unavailable RUY LOUISE spouse Unknown Unavailable ASAD FERRERA Personal Relationship Unknown Unava ilable COUSINEAVESTA Aguilar sibling Unknown Unavailabl e BONNIE GLEASON mother Unknown Unavailable Care Team Providers Care Air Export Logistics Manager Name Role Phone Kianna GARCIA, Madeline Garcia Primary Care Physic andres Encounter [facility] [place] Date(s): 10/21/24 - 11/20/24 [facility] [address] [place] [address] Encounter Type: Triage Allergies, Adverse Reactions, Alerts [...] Refills, Maintenance, 09/29/23 5:10:00 PM EST, Aerosol, [facility] #[id number], Partial fill upon patient request if the [...] 0 Refills, Maintenance, 11/04/24 8:09:00 PM EST, [facility] #[id number], 30, USE 2 INHALATIONS BY MOUTH TWICE [...] 1 Refills, Maintenance, 09/12/24 4:12:00 PM EST, [facility] #[id number], 175, cm, 04/29/24 12:53:00 EDT, Height Start Date: 09/12/24 Status: Ordered Quantity: 90.0 Unit: tablet Repeat number: 1 cholestyramine 4 gm/5 gm oral powder for reconstitution 1 pack/packet, By Mouth, 2 times a day, # 60 pack/packet, 11 Refills, Maintenance, 03/13/23 9:25:00 AM EDT, REC Powder, [facility]/pharmacy #[id number], 175.3, cm, 01/03/23 14:03:00 EDT, Height Start Date: 03/13/23 Stop Date: 03/07/24 Status: Ordered Quantity: 60.0 Unit: pack/packet Repeat number: 12 diazepam 10 mg oral tablet 10 mg, 1, tablet, By Mouth, 3 times a day, may fill at a lesser amount MA BUILDING OPERATOR 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 Refills 0, Maintenance, 03/12/24 6:28:00 AM EDT, Route to Pharmacy Electronically, [facility] #[id number], 175, cm, 11/29/23 12:13:00 EST, Height Start Date: 03/12/24 Stop Date: 04/09/24 Status: Ordered Quantity: 84.0 Unit: tablet Repeat number: 1 diazepam 10 mg oral tablet 10 mg, 1, tablet, By Mouth, 3 times a day, # 84 tablet, Refills 0, Tot. Refills 0, Maintenance, 09/03/24 12:53:00 PM EST, Route to Pharmacy Electronically, [facility] #[id number], 175, cm, 04/29/24 12:53:00 EDT, Height Start Date: 09/03/24 Stop Date: 10/01/24 Status: Ordered Quantity: 84.0 Unit: tablet Repeat number: 1 Flonase Allergy Relief 50 mcg/inh nasal spray See Instructions, 50 mcg Daily, # 16 Gm, 1 Refills, Maintenance, 07/05/23 8:42:00 PM EDT, [facility]/pharmacy #[id number], Partial fill upon patient request if the prescription is for a schedule II opioid drug., 175.3, cm, 01/03/23 14:03:00 EDT, Height Start Date: 07/05/23 Status: Ordered Quantity: 16.0 Unit: g Repeat number: 2 Flovent HFA 110 mcg/inh inhalation aerosol 2 puffs, Inhalation, 2 times a day, # 12 Gm, 3 Refills, Maintenance, 02/08/22 2:29:00 PM EDT, Aerosol, [facility]/pharmacy #[id number], Partial fill upon patient request if the prescription is for a schedule II opioid drug., 175.3, cm, 06/02/21 13:48:00 EDT, Height Start Date: 02/08/22 Status: Ordered Quantity: 12.0 Unit: g Repeat number: 4 Golytely - oral powder for reconstitution 240 mL, By Mouth, Every 10 minutes, # 1 each, 0 Refills, Maintenance, 04/29/24 1:19:00 PM EDT, REC Powder, [facility] #[id number], Partial fill upon patient request if the [...] 11 Refills, Maintenance, 01/31/24 1:18:00 PM EDT, [facility] #[id number], Partial fill upon patient request if the prescription is for a schedule II opioid drug., 175, cm, 11/29/23 12:13:00 EST, Height Start Date: 01/31/24 Status: Ordered Quantity: 2.0 Unit: each Repeat number: 12 hydrochlorothiazide-lisinopril 12.5 mg-20 mg oral tablet 1 tablet, By Mouth, Daily, # 90 tablet, 1 Refills, Maintenance, 09/12/24 4:12:00 PM EST, [facility] #[id number], 90, TAKE 1 TABLET BY MOUTH DAILY, 175, cm, 04/29/24 12:53:00 EDT, Height Start Date: 09/12/24 Status: Ordered Quantity: 90.0 Unit: tablet Repeat number: 1 Lyrica 225 mg oral capsule 1 capsule = 225 mg, By Mouth, 2 times a day, masspat checked DNF: 07/22/2024, # 168 capsule, 1 Refills, Maintenance, 12/30/24 12:21:00 PM EDT, Capsule, [facility] #[id number], 175, cm, 04/29/24 12:53:00 EDT, Height Start Date: 12/30/24 Stop Date: 06/16/25 Status: Ordered Quantity: 168.0 Unit: capsule Repeat number: 2 Lyrica 225 mg oral capsule 1 capsule = 225 mg, By Mouth, 2 times a day, for 84 days, masspat checked DNF: 07/22/2024, # 168 capsule, 1 Refills, Hard Stop 12/30/24 12:21:00 PM EDT, 07/15/24 12:21:00 PM EDT, Capsule, [facility] #[id number], 175, cm, 04/29/24 12:53:00 EDT, Height Start Date: 07/15/24 Stop Date: 12/30/24 Status: Ordered Quantity: 168.0 Unit: capsule Repeat number: 2 methadone 10 mg oral tablet See Instructions, 2 tablet By Mouth in the morning. 1 tablet at lunch time, and 1 tablet at bedtimefor 14 days. Diagnosis: Chronic pain, # 56 tablet, 0 Refills, Maintenance, 2/24/25 1:37:00 PM EST, [facility] #[id number], 175, cm, 04/29/24 12:53:00 EDT, Height Start Date: 11/18/24 Status: Ordered Quantity: 56.0 Unit: tablet Repeat number: 1 Indication: Unspecified abdominal pain oxyCODONE 20 mg oral tablet 1 tablet = 20 mg, By Mouth, 4 times a day, PRN Pain , Moderate, for 14 days, # 56 tablet, 0 Refills, Hard Stop 12/02/24 1:39:00 PM EDT, 11/18/24 1:39:00 PM EST, [facility] #[id number], MassPAT checked, 175, cm, 04/29/24 12:53:00 EDT, [...] 0 Refills, Maintenance, 10/03/24 12:50:00 PM EST, [facility] #[id number], 7, APPLY TO THE AFFECTED AREA TOPICALLY EVERY 2 HOURS WHILE AWAKE FOR 4 DAYS, 175, cm, 04/29/24 12:53:00 EDT, Height Start Date: 10/03/24 Status: Ordered Quantity: 5.0 Unit: g Repeat number: 1 sertraline 100 mg oral tablet 1 tablet, By Mouth, Daily, # 90 tablet, 6 Refills, Maintenance, 03/04/24 10:15:00 AM EDT, [facility] #[id number], 175, cm, 11/29/23 12:13:00 EST, Height Start Date: 03/04/24 Status: Ordered Quantity: 90.0 Unit: tablet Repeat number: 1 SUMAtriptan 100 mg oral tablet 1 tablet, By Mouth, Daily, PRN NEEDED FOR MIGRAINE MAY REPEAT DOSE AFTER 2 HOURS UP TO A MAX OF 2, # 9 tablet, 3 Refills, Maintenance, 03/02/23 9:06:00 PM EDT, [facility]/pharmacy #[id number], 175.3, cm, 01/03/23 14:03:00 EDT, [...] 12:50:00 PM EST, Route to Pharmacy Electronically, [facility] #[id number], 175, cm, 04/29/24 12:53:00 EDT, Height Start Date: 10/03/24 Stop Date: 10/06/24 Status: Ordered Quantity: 6.0 Unit: tablet Repeat number: 1 Ventolin HFA 108 mcg/inh inhalation aerosol with adapter 2 puffs, Inhalation, Every 4 hours, PRN NEEDED FOR WHEEZING 1 FOR WORK AND 1 FOR HOME, # 36 Gm, 3 Refills, Maintenance, 11/11/24 1:07:00 PM EST, [facility] #[id number], 175, cm, 04/29/24 12:53:00 EDT, Height Start Date: 11/11/24 Status: Ordered Quantity: 36.0 Unit: g Repeat number: 1 Vitamin D3 50,000 intl units oral capsule 1 capsule, By Mouth, Every week, # 4 capsule, 5 Refills, Maintenance, 08/28/24 6:38:00 AM EST, [facility] #[id number], 175, cm, 04/29/24 12:53:00 EDT, Height Start [...] Active 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 Lubin, therapist 2managed by Dr Strtaton 3Juligayatri Veronica NP pain management at [facility] 4opioids since 2006, 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 6[facility] 7since PI 4020-5921 810/13 Social History Social History Type Response Smoking Status Former smoker; Other : quit 2011; entered on: 05/27/14 Sex Female Sex Representation Female (finding) Patient Care team information Care Team Personnel Name: Kianna GARCIA, Madeline Garcia Position: [facility] Physician - Primary Care Member Role: PCP Address: [address] [place] [phone]- Telecom: Name: Theresa Clinton NP Position: [facility] Associate Professional Member Role: Primary Care Nurse Address: [address] [place] [address] Drive [address] [place] [address]- Telecom: Name: Jaiden Estevez RN Position: [facility] RN Member Role: Primary Care Nurse Name: Perlita Acevedo RN Position: [facility] ED RN W/OE and Tasks Member Role: Primary Care Nurse Name: Lety Gutierrez RN Position: [facility] AMB Nurse Member Role: Primary Care Nurse Care Team Related Persons Name: VESTA STAFFORD Name: RUY LOUISE Name: ERIN GLEASON Insurance Providers Guarantor name: [facility] [employer] Plan Information #: 1 Payer: [facility] [place] Member Number: NA Policy Number: NA Group Number: NA
--- OUTSIDE RECORDS SUMMARY | 2024-11-28 19:18 | XMS_ITS | Continuity of Care Document ---
Author Organization [facility] Address [address] [place] [address]- [facility] Name Relationship Address Phone ERIN GLEASON father Unknown Unavailable RUY LOUISE spouse Unknown Unavailable ASAD FERRERA Personal Relationship Unknown Unava ilable COUSINEAVESTA Aguilar sibling Unknown Unavailabl e BONNIE GLEASON mother Unknown Unavailable Care Team Providers Care Financial Service Professional Name Role Phone Kianna GARCIA, Madeline Garcia Primary Care Physic andres Encounter [facility] Date(s): 10/07/24 - 11/06/24 [facility] [address] [place] [address] Encounter Type: Triage Allergies, Adverse Reactions, Alerts [...] Refills, Maintenance, 09/29/23 5:10:00 PM EST, Aerosol, [facility] #[id number], Partial fill upon patient request if the [...] 0 Refills, Maintenance, 11/04/24 8:09:00 PM EST, [facility] #[id number], 30, USE 2 INHALATIONS BY MOUTH TWICE [...] 1 Refills, Maintenance, 09/12/24 4:12:00 PM EST, [facility] #[id number], 175, cm, 04/29/24 12:53:00 EDT, Height Start Date: 09/12/24 Status: Ordered Quantity: 90.0 Unit: tablet Repeat number: 1 cholestyramine 4 gm/5 gm oral powder for reconstitution 1 pack/packet, By Mouth, 2 times a day, # 60 pack/packet, 11 Refills, Maintenance, 03/13/23 9:25:00 AM EDT, REC Powder, [facility]/pharmacy #[id number], 175.3, cm, 01/03/23 14:03:00 EDT, Height Start Date: 03/13/23 Stop Date: 03/07/24 Status: Ordered Quantity: 60.0 Unit: pack/packet Repeat number: 12 diazepam 10 mg oral tablet 10 mg, 1, tablet, By Mouth, 3 times a day, may fill at a lesser amount MA [employer] OF [employer] 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 Refills 0, Maintenance, 03/12/24 6:28:00 AM EDT, Route to Pharmacy Electronically, [facility] #[id number], 175, cm, 11/29/23 12:13:00 EST, Height Start Date: 03/12/24 Stop Date: 04/09/24 Status: Ordered Quantity: 84.0 Unit: tablet Repeat number: 1 diazepam 10 mg oral tablet 10 mg, 1, tablet, By Mouth, 3 times a day, # 84 tablet, Refills 0, Tot. Refills 0, Maintenance, 09/03/24 12:53:00 PM EST, Route to Pharmacy Electronically, [facility] #[id number], 175, cm, 04/29/24 12:53:00 EDT, Height Start Date: 09/03/24 Stop Date: 10/01/24 Status: Ordered Quantity: 84.0 Unit: tablet Repeat number: 1 Flonase Allergy Relief 50 mcg/inh nasal spray See Instructions, 50 mcg Daily, # 16 Gm, 1 Refills, Maintenance, 07/05/23 8:42:00 PM EDT, [facility]/pharmacy #[id number], Partial fill upon patient request [...] Maintenance, 04/29/24 1:19:00 PM EDT, REC Powder, [facility] #[id number], Partial fill upon patient request if the [...] 11 Refills, Maintenance, 01/31/24 1:18:00 PM EDT, [facility] #[id number], Partial fill upon patient request if the prescription is for a schedule II opioid drug., 175, cm, 11/29/23 12:13:00 EST, Height Start Date: 01/31/24 Status: Ordered Quantity: 2.0 Unit: each Repeat number: 12 hydrochlorothiazide-lisinopril 12.5 mg-20 mg oral tablet 1 tablet, By Mouth, Daily, # 90 tablet, 1 Refills, Maintenance, 09/12/24 4:12:00 PM EST, [facility] #[id number], 90, TAKE 1 TABLET BY MOUTH DAILY, 175, cm, 04/29/24 12:53:00 EDT, Height Start Date: 09/12/24 Status: Ordered Quantity: 90.0 Unit: tablet Repeat number: 1 Lyrica 225 mg oral capsule 1 capsule = 225 mg, By Mouth, 2 times a day, masspat checked DNF: 07/22/2024, # 168 capsule, 1 Refills, Maintenance, 12/30/24 12:21:00 PM EDT, Capsule, [facility] #[id number], 175, cm, 04/29/24 12:53:00 EDT, Height Start Date: 12/30/24 Stop Date: 06/16/25 Status: Ordered Quantity: 168.0 Unit: capsule Repeat number: 2 Lyrica 225 mg oral capsule 1 capsule = 225 mg, By Mouth, 2 times a day, for 84 days, masspat checked DNF: 07/22/2024, # 168 capsule, 1 Refills, Hard Stop 12/30/24 12:21:00 PM EDT, 07/15/24 12:21:00 PM EDT, Capsule, [facility] #[id number], 175, cm, 04/29/24 12:53:00 EDT, Height Start Date: 07/15/24 Stop Date: 12/30/24 Status: Ordered Quantity: 168.0 Unit: capsule Repeat number: 2 methadone 10 mg oral tablet See Instructions, 2 tablet By Mouth in the morning. 1 tablet at lunch time, and 1 tablet at bedtimefor 14 days. Diagnosis: Chronic pain, # 56 tablet, 0 Refills, Maintenance, 2/10/25 8:11:00 AM EST, [facility] #[id number], 175, cm, 04/29/24 12:53:00 EDT, Height Start Date: 11/04/24 Status: Ordered Quantity: 56.0 Unit: tablet Repeat number: 1 Indication: Unspecified abdominal pain oxyCODONE 20 mg oral tablet 1 tablet = 20 mg, By Mouth, 4 times a day, PRN Pain , Moderate, for 14 days, # 56 tablet, 0 Refills, Hard Stop 11/18/24 12:21:00 PM EST, 11/04/24 12:21:00 PM EST, [facility] #[id number], MassPAT checked, 175, cm, 04/29/24 12:53:00 EDT, [...] 0 Refills, Maintenance, 10/03/24 12:50:00 PM EST, [facility] #[id number], 7, APPLY TO THE AFFECTED AREA TOPICALLY EVERY 2 HOURS WHILE AWAKE FOR 4 DAYS, 175, cm, 04/29/24 12:53:00 EDT, Height Start Date: 10/03/24 Status: Ordered Quantity: 5.0 Unit: g Repeat number: 1 sertraline 100 mg oral tablet 1 tablet, By Mouth, Daily, # 90 tablet, 6 Refills, Maintenance, 03/04/24 10:15:00 AM EDT, [facility] #[id number], 175, cm, 11/29/23 12:13:00 EST, Height Start Date: 03/04/24 Status: Ordered Quantity: 90.0 Unit: tablet Repeat number: 1 SUMAtriptan 100 mg oral tablet 1 tablet, By Mouth, Daily, PRN NEEDED FOR MIGRAINE MAY REPEAT DOSE AFTER 2 HOURS UP TO A MAX OF 2, # 9 tablet, 3 Refills, Maintenance, 03/02/23 9:06:00 PM EDT, [facility]/pharmacy #[id number], 175.3, cm, 01/03/23 14:03:00 EDT, [...] 12:50:00 PM EST, Route to Pharmacy Electronically, [facility] #[id number], 175, cm, 04/29/24 12:53:00 EDT, Height Start Date: 10/03/24 Stop Date: 10/06/24 Status: Ordered Quantity: 6.0 Unit: tablet Repeat number: 1 Ventolin HFA 108 mcg/inh inhalation aerosol with adapter 2 puffs, Inhalation, Every 4 hours, PRN for wheezing, One for work and one for home, # 2 each, 3 Refills, Maintenance, 07/02/24 3:06:00 PM EDT, Aerosol, [facility] #[id number], Partial fill upon patient request if the prescription is for a schedule II opioid drug., 175, cm, 04/29/24 12:53:00 EDT, Height Start Date: 07/02/24 Status: Ordered Quantity: 2.0 Unit: each Repeat number: 4 Ventolin HFA 108 mcg/inh inhalation aerosol with adapter 2 puffs, Inhalation, Every 4 hours, # 2 each, 1 Refills, Soft Stop, 07/06/22 6:28:00 AM EDT, [facility]/pharmacy #[id number], 175.3, cm, 05/05/22 16:51:00 EDT, Height Start Date: 07/06/22 Status: Ordered Quantity: 2.0 Unit: each Repeat number: 2 Vitamin D3 50,000 intl units oral capsule 1 capsule, By Mouth, Every week, # 4 capsule, 5 Refills, Maintenance, 08/28/24 6:38:00 AM [facility] #[id number], 175, cm, 04/29/24 12:53:00 EDT, Height Start [...] related to Crohn's [facility] 7since [facility] [id number] 810/13 Social History Social History Type Response Smoking Status Former smoker; Other : quit 2011; entered on: 05/27/14 Sex Female Sex Representation Female (finding) Patient Care team information Care Team Personnel Name: Kianna GARCIA, Madeline Garcia Position: [facility] Physician - Primary Care Member Role: PCP Address: [address] [place] [address]- [place] [employer]: Name: Theresa Clinton NP Position: [facility] Associate Professional Member Role: Primary Care Nurse Address: [address] [place] [address] Drive [address] [place] [address]- [place] [employer]: Name: Jaiden Estevez RN Position: [facility] RN Member Role: Primary Care Nurse Name: Perlita Acevedo RN Position: [facility] ED RN W/OE and Tasks Member Role: Primary Care Nurse Name: Lety Gutierrez RN Position: [facility] AMB Nurse Member Role: Primary Care Nurse Care Team Related Persons Name: VESTA STAFFORD Name: RUY LOUISE Name: ERIN GLEASON Insurance Providers Guarantor name: [facility] Plan Information #: 1 Payer: [facility] [employer] Member Number: NA Policy Number: NA Group Number: NA
[2024-11-28 20:22] LABS: CDiff Gene PCR NEGATIVE (Negative)
[2024-11-29 12:10] LABS: Adenovirus F 40/41 Not Detected (Not Detect.); Astrovirus Not Detected (Not Detect.); Campylobacter Not Detected (Not Detect.); Cryptosporidium Not Detected (Not Detect.); Cyclospora cayetanensis Not Detected (Not Detect.); E. coli EAEC Not Detected (Not Detect.); E. coli EPEC Not Detected (Not Detect.); E. coli ETEC Not Detected (Not Detect.); E. coli STEC Not Detected (Not Detect.); Entamoeba histolytica Not Detected (Not Detect.); Giardia lamblia Not Detected (Not Detect.); Norovirus GI/GII Not Detected (Not Detect.); Plesiomonas shigelloides Not Detected (Not Detect.); Rotavirus A Not Detected (Not Detect.); Salmonella Not Detected (Not Detect.); Sapovirus Not Detected (Not Detect.); Shigella sp./EIEC Not Detected (Not Detect.); Vibrio Not Detected (Not Detect.); Vibrio Cholerae Not Detected (Not Detect.); Yersinia enterocolitica Not Detected (Not Detect.)
[2024-12-05 18:23] LABS: Calprotectin, Fecal 120 mcg/g
== END 2024-11-28 16:00 | disposition home or self-care (01) ==
LOC: HO.LNP 15:59
PROVIDERS: Visit Provider Physician Assistant Medical
DX: R19.7 Diarrhea, unspecified (principal)
CPT/HCPCS: 83993; 87177; 87209; 87493; 87507

== ENCOUNTER → 2025-04-19 16:39 | Outpatient (BNV) | payer OTHER, SELFPAY | PROVIDERS: PCP Family Medicine; Visit Provider Radiology Diagnostic Radiology | DX: M17.11 Unilateral primary osteoarthritis, right knee (principal); S82.831A Other fracture of upper and lower end of right fibula, initial encounter for closed fracture | CPT/HCPCS: 73564; 73600; 73620 ==

== ENCOUNTER 2025-04-19 17:13 | Emergency (ER) | payer OTHER, SELFPAY ==
--- NOTE | ~2025-04-19 | XR_ITS ---
CLINICAL HISTORY: rolled ankle 3 view right ankle Comparison: None provided Findings: Mildly displaced oblique distal fibular fracture. Small bony fragment adjacent to the medial malleolus. No significant loss of joint space, osteophytes, or erosions. No ankle effusion. No radiopaque foreign body. IMPRESSION: 1. Distal fibular fracture. 2. Possible small chip fracture of the medial malleolus. This document has been electronically signed by: Sergio Ferro MD on 04/19/2025 18:06:12
--- NOTE | ~2025-04-19 | XR_ITS ---
CLINICAL HISTORY: rolled abkle 3 view right foot Comparison: None provided Findings: Mildly displaced distal fibular fracture. No significant arthritic change or erosions. No ankle effusion. No radiopaque foreign body. IMPRESSION: Distal fibular fracture. This document has been electronically signed by: Sergio Ferro MD on 04/19/2025 18:04:37
--- NOTE | ~2025-04-19 | XR_ITS ---
CLINICAL HISTORY: Pain; Fall 4 view right knee Comparison: None provided Findings: Bones intact. No dislocations. Tricompartmental periarticular osteophyte formation, indicating osteoarthritis. No joint effusion. No radiopaque foreign body. IMPRESSION: 1. No acute findings. This document has been electronically signed by: Sergio Ferro MD on 04/19/2025 20:21:12
[2025-04-19 17:18] VITALS: BP 145/73; PULSE 89; RESP 18; TEMP 36.3; O2SAT 96; BMI 29.5
--- NOTE | 2025-04-19 17:47 | ED_ITS ---
HPI - Extremity Injury (Lower) General Chief Complaint: Extremity Injury, Lower Stated Complaint: ankle injury/rt ankle Time Seen by Provider: 04/19/25 19:19 Source: patient Mode of arrival: ambulatory Limitations: no limitations History of Present Illness ED Provider: Roberto ELISE HPI Narrative: The patient is a 54-year-old female presenting to the ED reporting she was standing in her kitchen around 01:00 Monday morning (04/18) when her right knee gave out? and she fell onto her right leg with subsequent rolling injury of her right ankle. Patient denies loss of consciousness, head strike, or anticoagulation. The patient denies prodrome prior to fall. The patient reports since that time she has been experiencing right ankle pain swelling, and ecchymosis. The patient denies previous injury to the affected extremity. Patient reports she is able to bear weight but with significant pain. Related Data Previous Rx's ?Medication ?Instructions ?Recorded acetaminophen 500 mg capsule 1,000 mg (2 x 500 mg) PO .q8 PRN 04/19/25 fever or pain #30 caps oxycodone 5 mg tablet 5 mg PO Q8H PRN pain #14 tab s 04/19/25 Allergies Allergy/AdvReac Type Severity Reaction Status Date / Time acetaminophen (From [facility]) Allergy Unknown STOMACH Verified 04/19/25 17:20 UPSET aspirin (ASPIRIN) Allergy Unknown STOMACH Verified 04/19/25 17:20 UPSET dichloralphenazone (From Allergy Unknown STOMACH Verified 04/19/25 17:20 [place]) UPSET NSAIDS (Non-Steroidal Allergy Unknown STOMACH Verified 04/19/25 17:20 Anti-Inflamma (NSAIDS) UPSET From KEFLEX Allergy Unknown STOMACH Uncoded 06/11/20 14:46 UPSET From [facility] Allergy Unknown STOMACH Uncoded 06/11/20 14:46 UPSET Review of Systems Review of Systems: Yes all other systems are reviewed and are negative PMFSH Social History Social History Alcohol intake: current Alcohol intake frequency: a few times a week Smoked in Last 30 Days: No Use of substances other than those prescribed or required for medical reasons: No Advance Directives: No Advance Directives Information Provided: No Patient : No Physical Exam Vital Signs: Vital Signs: Last Vital Signs Temp 98.0 F 04/19/25 19:46 Pulse 86 04/19/25 19:46 Resp 18 04/19/25 19:46 BP 132/68 04/19/25 19:46 Pulse Ox 97 04/19/25 19:46 O2 Del Method Room Air 04/19/25 19:46 BMI result Body Mass Index 29.5 CONSTITUTIONAL: The patient appears non-toxic, well nourished and in no acute distress. Vital signs as documented. HEAD: Atraumatic, normocephalic. EYES: EOMs grossly intact, pupils equal, conjunctiva clear, no exudate. ENT: Nares patent, no discharge. Airway patent, no audible stridor, visible mucosa is pink and moist without noted lesions. NECK: trachea is midline, no obvious masses or gross abnormalities. CHEST: Symmetric movement, normal appearance. LUNGS: Non-labored work of breathing. CARDIAC: No evidence of hypoperfusion. ABDOMEN: Nondistended, no obvious injury. : Deferred. EXTREMITIES: There is significant bruising, ecchymosis, swelling, and tenderness to palpation of the right ankle, both the lateral malleolus and medial malleolus elicit tenderness. Distal CSM is intact, range of motion limited by pain, 2+ DP/PT pulses appreciated. Patient also reports tenderness to palpation of the right knee without associated crepitus. There is additional bruising noted to the right proximal anterior wong which patient attributes to a overly tight Herrera wrap applied by her son immediately following the injury. Moves all other extremities spontaneously without reported pain. No open injury, no other obvious injury or deformity noted. NEURO: Alert and oriented x3, CN II-XII appear grossly intact. Cerebellar Functioning grossly intact. Speech clear and appropriate. SKIN: Warm, dry, color appropriate. No rashes or lesions noted. Course Course Course Narrative: 04/19/25 1748 ARIK Pabon This is a Rapid Medical Examination (RME) performed by Rico Berger PA-C in triage. Full HPI, ROS, assessment and treatment plan per primary provider in the Main ED. Hx: 54 yo F here for eval of right ankle pain s/p rolling the ankle at 0100 yesterday morning. unable to bear weight. Plan: xrs Medications Administered Discontinued Medications Generic Name Dose Route Start Last Admin Trade Name Freq PRN Reason Stop Dose Admin Acetaminophen 975 mg 04/19/25 19:38 04/19/25 19:43 Acetaminophen 325 Mg Tablet PO 04/19/25 19:39 975 mg ONCE ONE Administration Oxycodone HCl 5 mg 04/19/25 19:38 04/19/25 19:43 Oxycodone Hcl Immed Release 5 Mg Tablet PO 04/19/25 19:39 5 mg ONCE ONE Administration Medical Decision Making Medical Decision Making [facility] Narrative: 7:44 PM 04/19/2025 (Rico ELISE): The patient is a 54-year-old female presen ting to the ED for evaluation of right ankle pain after a fall overnight and Monday when her right knee gave out. Patient initially presented for only right ankle pain. Right ankle and foot x-rays were obtained and show a distal fibular fracture with question avulsion fracture of the medial malleolus. At time of this provider's exam however the patient is also reporting significant tenderness of the knee with any manipulation. We will add on knee x-ray to ensure no additional fracture. Pending unremarkable knee x-ray patient will be placed in a tall walking boot and provided crutches. The patient has multiple allergies, the patient's pain will be treated with Tylenol, RICE, and oxycodone. 8:27 PM 04/19/2025 (Rico ELISE): Patient's knee x-ray shows no evidence of acute fracture. The patient will be placed in walking boot and provided crutches training, patient will be discharged with pain control and orthopedic follow up. Radiology Impression Discussion of test interpretation with radiology: I have reviewed the radiologist's reading. Radiologist Impression: 3 view right ankle Comparison: None provided Findings: Mildly displaced oblique distal fibular fracture. Small bony fragment adjacent to the medial malleolus. No significant loss of joint space, osteophytes, or erosions. No ankle effusion. No radiopaque foreign body. IMPRESSION: 1. Distal fibular fracture. 2. Possible small chip fracture of the medial malleolus. This document has been electronically signed by: Sergio Ferro MD on 04/19/2025 18:06:12 CLINICAL HISTORY: rolled abkle 3 view right foot Comparison: None provided Findings: Mildly displaced distal fibular fracture. No significant arthritic change or erosions. No ankle effusion. No radiopaque foreign body. IMPRESSION: Distal fibular fracture. This document has been electronically signed by: Sergio Ferro MD on 04/19/2025 18:04:37 CLINICAL HISTORY: Pain; Fall 4 view right knee Comparison: None provided Findings: Bones intact. No dislocations. Tricompartmental periarticular osteophyte formation, indicating osteoarthritis. No joint effusion. No radiopaque foreign body. IMPRESSION: 1. No acute findings. This document has been electronically signed by: Sergio Ferro MD on 04/19/2025 20:21:12 Discharge Plan Discharge Clinical Impression: Closed fracture of distal end of right fibula Patient Disposition: Home, Self-Care Instructions: Ankle Fracture (ED), Leg Fracture (ED) Prescriptions: New acetaminophen 500 mg capsule 1,000 mg PO .q8 PRN (Reason: fever or pain) Qty: 30 0RF oxycodone 5 mg tablet 5 mg PO Q8H PRN (Reason: pain) Qty: 14 0RF Rx Instructions: Partial Fill upon patient request. Referrals: [facility] [Provider Group] Clinical Impression: Closed fracture of distal end of right fibula Madeline Caballero MD [Primary Care Provider, Internal Medicine] Clinical Impression: Closed fracture of distal end of right fibula Print Language: Bengali
[2025-04-19] MEDS: oxyCODONE HCl Immed Release 5 MG TABLET PO (19:43)
[2025-04-19 19:46] VITALS: BP 132/68; PULSE 86; RESP 18; TEMP 36.7; O2SAT 97
[2025-04-19 21:23] VITALS: BP 132/68; PULSE 86; RESP 18; TEMP 36.7; O2SAT 97
== END 2025-04-19 21:26 | disposition home or self-care (01) ==
PROVIDERS: Emergency Provider Emergency Medicine Emergency Medical Services; PCP Family Medicine
DX: S82.831A Other fracture of upper and lower end of right fibula, initial encounter for closed fracture (principal); X50.1XXA Overexertion from prolonged static or awkward postures, initial encounter; M25.571 Pain in right ankle and joints of right foot; M25.561 Pain in right knee; Y93.89 Activity, other specified; Y92.010 Kitchen of single-family (private) house as the place of occurrence of the external cause; Y99.9 Unspecified external cause status
CPT/HCPCS: 73564; 73600; 73620; 99283; 99284

== ENCOUNTER 2025-04-30 11:27 | Outpatient (AMB) | payer OTHER, SELFPAY ==
--- OUTSIDE RECORDS SUMMARY | 2025-04-24 23:59 | XMS_ITS | Continuity of Care Document ---
Author Organization [facility] Address [address] [place] [address]- Care Team Providers Care Creative Services Coordinator Name Role Phone Kianna GARCIA, Madeline Garcia Primary Care Physic andres Encounter [facility] Date(s): 03/25/25 - 04/24/25 [facility] [address], [place] [address] Encounter Type: Triage Allergies, [...] Refills, Maintenance, 09/29/23 5:10:00 PM EST, Aerosol, [facility] #[id number], Partial fill upon patient request if the prescription is for a schedule II opioid drug., 2 puffs Inhalation 2 times a day, 175, cm, 09/20/23 13:34:00 EST, Height Start Date: 09/29/23 Status: Ordered Quantity: 60.0 Unit: each Repeat number: 4 Indications: Moderate persistent asthma, uncomplicated; Advair HFA 115 mcg / 21 mcg See Instructions, USE 2 INHALATIONS BY MOUTH TWICE DAILY, # 12 Gm, 0 Refills, Maintenance, 11/04/24 8:09:00 PM EST, [facility] #[id number], 30, USE 2 INHALATIONS BY MOUTH TWICE [...] Quantity: 1.0 Unit: each Repeat number: 2 Albuterol (Eqv-Proventil HFA) 90 mcg/inh inhalation aerosol See Instructions, INHALE 2 PUFFS BY MOUTH EVERY 4 HOURS NEEDED FOR WHEEZING 1 FOR WORK AND 1 FORHOME, # 33.5 Gm, 0 Refills, Maintenance, 04/09/25 8:06:00 AM EDT, [facility] #[id number], 175, cm, 02/13/25 15:05:00 EDT, Height Start Date: 04/09/25 Status: Ordered Quantity: 33.5 Unit: g Repeat number: 1 amLODIPine 5 mg oral tablet 1 tablet, By Mouth, Daily, # 90 tablet, 1 Refills, Maintenance, 03/27/25 9:44:00 AM EDT, [facility] #[id number], 175, cm, 02/13/25 15:05:00 EDT, Height Start Date: 03/27/25 Status: Ordered Quantity: 90.0 Unit: tablet Repeat number: 1 cholestyramine 4 gm/5 gm oral powder for reconstitution 1 pack/packet, By Mouth, 2 times a day, # 60 pack/packet, 11 Refills, Maintenance, 03/13/23 9:25:00 AM EDT, REC Powder, [facility]/pharmacy #[id number], 175.3, cm, 01/03/23 14:03:00 EDT, Height Start Date: 03/13/23 Stop Date: 03/07/24 Status: Ordered Quantity: 60.0 Unit: pack/packet Repeat number: 12 diazepam 10 mg oral tablet 10 mg, 1, tablet, By Mouth, 3 times a day, may fill at a lesser amount [employer]PERATOR 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 Refills 0, Maintenance, 03/12/24 6:28:00 AM EDT, Route to Pharmacy Electronically, [facility] #[id number], 175, cm, 11/29/23 12:13:00 EST, Height Start Date: 03/12/24 Stop Date: 04/09/24 Status: Ordered Quantity: 84.0 Unit: tablet Repeat number: 1 diazepam 10 mg oral tablet 10 mg, 1, tablet, By Mouth, 3 times a day, # 84 tablet, Refills 0, Tot. Refills 0, Maintenance, 09/03/24 12:53:00 PM EST, Route to Pharmacy Electronically, [facility] #[id number], 175, cm, 04/29/24 12:53:00 EDT, Height Start Date: 09/03/24 Stop Date: 10/01/24 Status: Ordered Quantity: 84.0 Unit: tablet Repeat number: 1 diazepam 10 mg oral tablet 10 mg, 1, tablet, By Mouth, Every 8 hours, # 84 tablet, Refills 0, Tot. Refills 0, Maintenance, 01/29/25 5:48:00 PM EDT, Route to Pharmacy Electronically, [facility] #[id number], 175, cm, 11/28/2512:33:00 EST, Height Start Date: 01/29/25 Stop Date: 02/26/25 Status: Ordered Quantity: 84.0 Unit: tablet Repeat number: 1 Flonase Allergy Relief 50 mcg/inh nasal spray See Instructions, 50 mcg Daily, # 16 Gm, 1 Refills, Maintenance, 07/05/23 8:42:00 PM EDT, [facility]/pharmacy #[id number], Partial fill upon patient request if the prescription is for a schedule II opioid drug., 175.3, cm, 01/03/23 14:03:00 EDT, Height Start Date: 07/05/23 Status: Ordered Quantity: 16.0 Unit: g Repeat number: 2 Flovent HFA 110 mcg/inh inhalation aerosol 2 puffs, Inhalation, 2 times a day, # 12 Gm, 3 Refills, Maintenance, 02/08/22 2:29:00 PM EDT, Aerosol, [facility]/pharmacy #[id number], Partial fill upon patient request if the prescription is for a schedule II opioid drug., 175.3, cm, 06/02/21 13:48:00 EDT, Height Start Date: 02/08/22 Status: Ordered Quantity: 12.0 Unit: g Repeat number: 4 Golytely - oral powder for reconstitution 240 mL, By Mouth, Every 10 minutes, # 1 each, 0 Refills, Maintenance, 04/29/24 1:19:00 PM EDT, REC Powder, [facility] #[id number], Partial fill upon patient request if the prescription is for a schedule II opioid drug., 240 mL By Mouth Every 10 minutes, 175, cm, 04/29/24 12:53:00 EDT, Height Start Date: 04/29/24 Status: Ordered Quantity: 1.0 Unit: each Repeat number: 1 Humira Pen 40 mg/0.4 mL subcutaneous kit = 40 mg, Subcutaneous Injection, Every 14 days, # 1 kit, 5 Refills, Maintenance, 02/10/25 1:07:00 PMEDT, [facility] #[id number], Partial fill upon patient request if the prescription is for a schedule II opioid drug., 175, cm, 11/28/24 13:33:00 EST, Height Start Date: 02/10/25 Status: Ordered Quantity: 1.0 Unit: kit Repeat number: 6 hydrochlorothiazide-lisinopril 12.5 mg-20 mg oral tablet 1 tablet, By Mouth, Daily, # 90 tablet, 1 Refills, Maintenance, 09/12/24 4:12:00 PM EST, [facility] #[id number], 90, TAKE 1 TABLET BY MOUTH DAILY, 175, cm, 04/29/24 12:53:00 EDT, Height Start Date: 09/12/24 Status: Ordered Quantity: 90.0 Unit: tablet Repeat number: 1 hydrochlorothiazide-lisinopril 12.5 mg-20 mg oral tablet See Instructions, TAKE 1 TABLET BY MOUTH DAILY, # 90 tablet, 0 Refills, Maintenance, 03/27/25 9:58:00AM EDT, [facility] #[id number], 90, TAKE 1 TABLET BY MOUTH DAILY, 175, cm, 02/13/25 15:05:00 EDT, Height Start Date: 03/27/25 Status: Ordered Quantity: 90.0 Unit: tablet Repeat number: 1 Lyrica 225 mg oral capsule 1 capsule = 225 mg, By Mouth, 2 times a day, for 84 days, masspat checked DNF:03/27/2025, # 168 capsule, 1 Refills, Hard Stop 08/28/25 9:36:00 AM EST, 03/13/25 9:36:00 AM EDT, Capsule, [facility] #[id number], 175, cm, 02/13/25 15:05:00 EDT, Height Start Date: 03/13/25 Stop Date: 08/28/25 Status: Ordered Quantity: 168.0 Unit: capsule Repeat number: 2 Lyrica 225 mg oral capsule 1 capsule = 225 mg, By Mouth, 2 times a day, for 84 days, masspat checked DNF:01/02/2025, # 168 capsule, 1 Refills, Hard Stop 06/12/25 6:12:00 PM EDT, 12/26/24 6:12:00 PM EDT, Capsule, [facility] #[id number], 175, cm, 11/28/24 13:33:00 EST, Height Start Date: 12/26/24 Stop Date: 06/12/25 Status: Ordered Quantity: 168.0 Unit: capsule Repeat number: 2 Lyrica 225 mg oral capsule 1 capsule = 225 mg, By Mouth, 2 times a day, masspat checked ok to fill early due to travel, # 168 capsule, 0 Refills, Maintenance, 03/25/25 1:47:00 PM EDT, Capsule, [facility] #[id number], 175, cm, 02/13/25 15:05:00 EDT, Height Start Date: 03/25/25 Stop Date: 06/17/25 Status: Ordered Quantity: 168.0 Unit: capsule Repeat number: 1 methadone 10 mg oral tablet See Instructions, 2 tablet By Mouth in the morning. 1 tablet at lunch time, and 1 tablet at bedtimefor 14 days. Diagnosis: Chronic pain, # 56 tablet, 0 Refills, Maintenance, 7/14/25 10:08:00 AM EDT,[facility] #[id number], 175, cm, 02/13/25 15:05:00 EDT, Height Start Date: 04/07/25 Status: Ordered Quantity: 56.0 Unit: tablet Repeat number: 1 Indications: Unspecified abdominal pain; methadone 10 mg oral tablet See Instructions, 2 tablet By Mouth in the morning. 1 tablet at lunch time, and 1 tablet at bedtimefor 14 days. Diagnosis: Chronic pain, # 56 tablet, 0 Refills, Maintenance, 04/21/25 8:01:00 AM EDT, [facility] #[id number], 175, cm, 02/13/25 15:05:00 EDT, Height Start Date: 04/21/25 Status: Ordered Quantity: 56.0 Unit: tablet Repeat number: 1 Indications: Unspecified abdominal pain; oxyCODONE 20 mg oral tablet 1 tablet = 20 mg, By Mouth, 4 times a day, PRN Pain , Moderate, for 14 days, # 56 tablet, 0 Refills, Hard Stop 05/06/25 8:50:00 AM EDT, 04/22/25 8:50:00 AM EDT, [facility] #[id number], MassPAT checked, 175, cm, 02/13/25 15:05:00 EDT, Height Start Date: 04/22/25 Stop Date: 05/06/25 Status: Ordered Quantity: 56.0 Unit: tablet Repeat number: 1 Indications: Unspecified abdominal pain; pantoprazole 40 mg oral delayed release tablet [...] DAYS, # 5 Gm, 0 Refills, Maintenance, 11/25/24 12:15:00 PM EST, [facility] #[id number], 7, APPLY TO THE AFFECTED AREA TOPICALLY EVERY 2 HOURS WHILE AWAKE FOR 4 DAYS, 175, cm, 04/29/24 12:53:00 EDT, Height Start Date: 11/25/24 Status: Ordered Quantity: 5.0 Unit: g Repeat number: 1 penciclovir 1% topical cream See Instructions, APPLY TOPICALLY TO THE AFFECTED AREA EVERY 2 HOURS WHILE AWAKE FOR 4 DAYS, # 5 Gm, 0 Refills, Maintenance, 04/22/25 1:57:00 PM EDT, [facility] #[id number], 30, APPLY TOPICALLY TO THE AFFECTED AREA EVERY 2 HOURS WHILE AWAKE FOR 4 DAYS, 175, cm, 02/13/25 15:05:00 EDT, Height Start Date: 04/22/25 Status: Ordered Quantity: 5.0 Unit: g Repeat number: 1 penciclovir 1% topical cream See Instructions, APPLY TO THE AFFECTED AREA TOPICALLY EVERY 2 HOURS WHILE AWAKE FOR 4 DAYS, # 5 Gm, 0 Refills, Maintenance, 03/13/25 1:25:00 AM EDT, [facility] #[id number], 30, APPLY TO THE AFFECTED AREA TOPICALLY EVERY 2 HOURS WHILE AWAKE FOR 4 DAYS, 175, cm, 02/13/25 15:05:00 EDT, Height Start Date: 03/13/25 Status: Ordered Quantity: 5.0 Unit: g Repeat number: 1 sertraline 100 mg oral tablet 1 tablet, By Mouth, Daily, # 90 tablet, 6 Refills, Maintenance, 03/04/24 10:15:00 AM EDT, [facility] #[id number], 175, cm, 11/29/23 12:13:00 EST, Height Start Date: 03/04/24 Status: Ordered Quantity: 90.0 Unit: tablet Repeat number: 1 SUMAtriptan 100 mg oral tablet 1 tablet, By Mouth, Daily, PRN NEEDED FOR MIGRAINE MAY REPEAT DOSE AFTER 2 HOURS UP TO A MAX OF 2, # 9 tablet, 3 Refills, Maintenance, 12/30/24 12:40:00 PM EDT, [facility] #[id number], 175, cm,11/28/24 13:33:00 EST, Height Start Date: 12/30/24 Status: Ordered Quantity: 9.0 Unit: tablet Repeat [...] 12:50:00 PM EST, Route to Pharmacy Electronically, [facility] #[id number], 175, cm, 04/29/24 12:53:00 EDT, Height Start Date: 10/03/24 Stop Date: 10/06/24 Status: Ordered Quantity: 6.0 Unit: tablet Repeat number: 1 Ventolin HFA 108 mcg/inh inhalation aerosol with adapter 2 puffs, Inhalation, Every 4 hours, PRN NEEDED FOR WHEEZING 1 FOR WORK AND 1 FOR HOME, # 36 Gm, 3 Refills, Maintenance, 11/11/24 1:07:00 PM EST, [facility] #[id number], 175, cm, 04/29/24 12:53:00 EDT, Height Start Date: 11/11/24 Status: Ordered Quantity: 36.0 Unit: g Repeat number: 1 Vitamin D3 50,000 intl units oral capsule 1 capsule, By Mouth, Every week, # 4 capsule, 5 Refills, Maintenance, 08/28/24 6:38:00 AM EST, [facility] #53521, 175, cm, 04/29/24 12:53:00 EDT, Height Start Date: 08/28/24 Status: Ordered Quantity: 4.0 Unit: capsule Repeat number: 6 Zepbound 5 mg/0.5 mL subcutaneous solution = 5 mg, Subcutaneous Injection, Every week, rotate injection sites, # 4 each, 1 Refills, Maintenance, 03/05/25 12:51:00 PM EDT, Solution, [facility] #[id number], Partial fill upon patient requestif the prescription is for a schedule II opioid drug., 175, cm, 02/13/25 15:05:00 EDT, Height Start Date: 03/05/25 Status: Ordered Quantity: 4.0 Unit: each Repeat number: 2 Zepbound Pen 7.5 mg/0.5 mL subcutaneous solution = 7.5 mg, Subcutaneous Injection, Every week, rotate injection sites, # 2 mL, 2 Refills, Maintenance, 04/03/25 4:01:00 PM EDT, Solution, [facility] #[id number], Partial fill upon patient request if the prescription is for a schedule II opioid drug., 175, cm, 02/13/25 15:05:00 EDT, Height Start Date: 04/03/25 Status: Ordered Quantity: 2.0 Unit: mL Repeat number: 3 Problem List Condition Confirmation Course Effective Dates [...] related to Crohn's 6[facility] 7since [facility] [id number] 810/13 Social History Social History Type Response Smoking Status Former smoker; Other : quit 2011; entered on: 05/27/14 Sex Female Sex Representation Female (finding) Patient Care team information Care Team Personnel Name: Kianna GARCIA, Madeline Garcia Position: [facility] Physician - Primary Care Member Role: PCP Address: [address] [place] [address]- [place] Telecom: Name: Theresa Clinton NP Position: [facility] Associate Professional Member Role: Primary Care Nurse Address: [address] [place] [address]- Telecom: Name: Jaiden Estevez RN Position: [facility] RN Member Role: Primary Care Nurse Name: Perlita Acevedo RN Position: [facility] ED RN W/OE and Tasks Member Role: Primary Care Nurse Name: Lety Gutierrez RN Position: [facility] AMB Nurse Member Role: Primary Care Nurse Care Team Related Persons Name: RIVERANAHEEDE Name: RUY LOUISE Name: ERIN GLEASON Insurance Providers Guarantor name: [facility] [employer] Plan Information #: 1 Payer: [facility] Payer Identifier: GENE Member Number: [id number] Group Number: [id number] Subscriber Identifier: [id number] Relationship to Subscriber: self Coverage Type: Medicare Managed Care (Includes Medicare Advantage Plans) Coverage Verification Date: GENE Telecom: GENE Address:
--- NOTE | 2025-04-30 11:32 | MHC.OFFVIS ---
Intake Visit Reasons: ED/FC-Closed FC of distal end of RT ankle Intake Note: Pretty is a 54 year old female who presents today for a fracture care visit for her fracture of distal end of right ankle status post emergency department visit on 04/19/25. Per patients ED note she was standing in her kitchen around on 04/18/25 when her right knee suddenly gave out and buckled causing her to fall onto her right leg with subsequent rolling injury of her right ankle. Patient reports she fears her knee will give out on her again, says this has never happened before. Expresses pain on the lateral, anterior and posterior aspect of the right ankle. She is taking oxycodone for pain and says she does not feel relief. Boot provided by ED she says feels too big, her foot feels secure however she feels the leg twist causing it pain. She says when she uses the pump it only tightens around her foot. Allergies acetaminophen (From [facility]) Allergy (Unknown, Verified 04/30/25 11:43) STOMACH UPSET aspirin (ASPIRIN) Allergy (Unknown, Verified 04/30/25 11:43) STOMACH UPSET dichloralphenazone (From [facility]) Allergy (Unknown, Verified 04/30/25 11:43) STOMACH UPSET NSAIDS (Non-Steroidal Anti-Inflamma (NSAIDS) Allergy (Unknown, Verified 04/30/25 11:43) STOMACH UPSET From KEFLEX Allergy (Unknown, Uncoded 04/30/25 11:43) STOMACH UPSET From [facility] Allergy (Unknown, Uncoded 04/30/25 11:43) STOMACH UPSET HPI HPI ED/FC-Closed FC of distal end of RT ankle: Details: 54-year-old female presents to the office today for an injury she sustained to her right ankle on 04/18. She states she was walking or standing when her knee gave out and she fell injuring the ankle. She was seen in the emergency department where x-rays were obtained and she was placed in a boot and referred to our office for ortho eval. The patient states when she is ambulating she does not feel pain. She even takes the boot off and wraps it and has no concerns. [facility] Social History (Updated 04/30/25 @ 11:46 by ELIEL Murray) Alcohol intake: current Alcohol intake frequency: a few times a week Patient Tobacco Use Status: Former Tobacco user Current occupational status: employed Current occupation: [employer] Review of Systems Const All systems reviewed & are unremarkable except as noted in HPI and below Physical Exam Const General: cooperative and no acute distress Orientation/consciousness: patient oriented x3 Resp Effort & Inspection: normal respiratory effort and able to speak in complete sentences Cardio Peripheral pulses: Peripheral pulses 2+ throughout Neuro General: patient oriented x3 Extrem Other: Right ankle is normal to inspection no significant swelling. Mild tenderness over the distal fibula however there is no pain over the ankle mortise or medial malleolus. She has good sensation and pulses are present. Office Procedures AMB Fracture Care Fracture Billing Code: Fracture Billing Code Results Reviewed Results Reviewed: X-rays of the right ankle obtained in the office today with and without mortise stress view show distal fibular fracture with minimal displacement. Ankle mortise appears stable. Assessment & Plan Assessment & Plan (1) Closed fracture of distal end of right fibula: Code(s): S82.831A - Other fracture of upper and lower end of right fibula, initial encounter for closed fracture Category: Medical Qualifiers: Encounter type: initial encounter Fracture morphology: unspecified fracture morphology Qualified Code(s): S82.831A - Other fracture of upper and lower end of right fibula, initial encounter for closed fracture Plan: I had a lengthy discussion with the patient in regards to the extent of her injury. I explained to her with an ankle fracture above the level of the mortise there becomes a concern for syndesmosis disruption. Syndesmosis disruption would lead to instability of the ankle joint predisposing her to collapse and severe arthritis. The patient does express understanding of this condition. I presented her with the options of surgical intervention including operative fixation of the right ankle with potential syndesmosis repair. If we treat this without surgery I would place her in a cast nonweightbearing and have her follow-up closely every 1-2 weeks for x-rays to ensure the joint does not displace and collapse. The patient is hesitant to pursue do surgical intervention, therefore, I explained we could do an examination under anesthesia and if the joint is stable we cast and make her nonweightbearing. If the joint was unstable we would proceed with ORIF. The patient then asked if we could do this in the office and I explained patients do not typically tolerate this due to the level of pain. Patient explain she is not in pain and would like to have this done in the office. Therefore, I did repeat an x-ray with a stress mortise view which did not seem to demonstrate widening of the mortise. At this time, the ankle joint appears to be stable. I explained to the patient we can not rely on this 100% but we can continue to treat her nonoperatively with the understanding there is a risk that if she weightbears or there is any significant laxity to that joint it could collapse. Patient does express understanding. I explained to her I would prefer to put her in a short-leg cast nonweightbearing to ensure stability and proper healing. The patient is hesitant to go into a cast as she is unsure how she would care for herself i.e. bathing/showering. I explained there are things people can use such as bags or cast bags to place over the extremity to keep this dry. Patient prefers to wear her boot. I explained if she uses the boot that is not 100% immobilizing and there is still mobility that could occur in the boot leading to instability or collapse. I also explained if she is wearing the boot she can not be weight-bearing 100%. I explained to the patient a boot is not what I recommend but if she insists on wearing the boot she needs to be toe-touch weight-bearing for transfers only and needs to wear the boot at all times like a cast. Patient does express understanding. The patient will see me back in 2 weeks with x-rays, sooner if needed. Orders: Orders XR ankle RT 2V Today S82.831A - Other fracture of upper and lower end of right fibula, initial encounter for closed fracture XR ankle RT min 3V Today M25.571 - Pain in right ankle and joints of right foot Coding Level of Care Code New Pt Level 4 (29905) Complex EM visit Add On G2211 Diagnoses Closed fracture of distal end of right fibula S82.831A Encounter type: initial encounter Fracture morphology: unspecified fracture morphology CPT Codes Fracture Care - Fracture Billing Code: Fracture Billing Code ([id number])
--- OUTSIDE RECORDS SUMMARY | 2025-04-30 12:15 | XMS_ITS | Clinical Summary ---
Author Organization [facility] Address [address] [place] [id number] Phone Care Team Providers Care Promos Executive Producer Name Role Phone Lisbet Pepper MD Primary Care Provider Social History Tobacco Use Types Packs/Day Years Used Date Smoking Tobacco: Never Assessed Education Answer Date Recorded Are you interested in more education? Not on gretta e 01/20/2023 Are you concerned about learning? Not on file 01/20/2023 No 01/20/2023 No 01/20/2023 Digital Access Answer Date Recorded No 02/18/2023 No 02/18/2023 Reliable internet access at home? Not on file 02/18/2023 Device with a working camera? Not on file Comments Unknown Sex and Gender Information Value Date Recorded Sex Assigned at Not on file Legal Sex Female 9:33 PM EDT Gender Identity Not on file Sexual Orientation Not on file Last Filed Vital Signs Vital Sign Reading Time Taken Comments Blood Pressure 137/89 04/14/2015 3:25 AM EDT Pulse 72 04/14/2015 3:25 AM EDT Temperature - - Respiratory Rate - - Oxygen Saturation - - Inhaled Oxygen Concentration - - Weight 112.5 kg (248 lb) 04/14/2015 3:25 AM EDT Height 175.3 cm (5' 9 ) 04/14/2015 3:25 AM EDT Body Mass Index 36.62 04/14/2015 3:25 AM EDT Plan of Treatment Health Maintenance Due Date Last Done Comments Adult Td,Tdap Booster 1971 LIPID PANEL 1971 DEPRESSION SCREENING 1983 SMOKING Hx and SMOKELESS TOBACCO SCREENING 1984 HEPATITIS C SCREENING 1989 HIV ONE-TIME SCREENING (18-6 5 YEARS) 1989 PAP SMEAR 1992 MAMMOGRAM 2011 COLOGUARD 2016 COLONOSCOPY 2016 COLORECTAL CANCER SCREENING 2016 FIT TEST 2016 FOBT 2016 SIGMOIDOSCOPY 2016 VIRTUAL COLONOSCOPY 2016 PNEUMOCOCCAL VACCINES (50+ years) (1 of 1 - PCV) 2021 ZOSTER VACCINES (1 of 2) 2021 COVID-19 VACCINE (3 - 2023-2 5 season) 2024 04/13/2021, 03/15/2021 HEPATITIS A VACCINES Aged Out No long er eligible based on patient's age to complete this topic HIB VACCINES Aged Out No longer eligi ble based on patient's age to complete this topic MENINGOCOCCAL VACCINES (ACWY) Aged Out No longer eligible based on patient's age to complete this topic MENINGOCOCCAL VACCINES (B) Aged Out N o longer eligible based on patient's age to complete this topic Medical Devices Not on file Care Teams Promos Executive Producer Relationship Specialty Start Date End Date Lisbet Pepper MD PCP - General 09/28/17 Additional Source Comments The information contained in this document represents components of the legal health record. It is not the complete legal health record.[facility]
== END 2025-04-30 12:22 | disposition home or self-care (01) ==
LOC: HO.HOS 11:27
PROVIDERS: PCP Family Medicine; Visit Provider Physician Assistant
DX: S82.831A Other fracture of upper and lower end of right fibula, initial encounter for closed fracture (principal)
CPT/HCPCS: 99204; G2211

== ENCOUNTER → 2025-04-30 11:28 | Outpatient (BNV) | payer OTHER, SELFPAY | PROVIDERS: Visit Provider Radiology Body Imaging | DX: S82.891G Other fracture of right lower leg, subsequent encounter for closed fracture with delayed healing (principal) | CPT/HCPCS: 73600; 73610 ==

== ENCOUNTER 2025-04-30 12:13 | Outpatient (REF) | payer OTHER, SELFPAY ==
--- NOTE | ~2025-04-30 | XR_ITS ---
EXAMINATION: XR ANKLE, RIGHT CLINICAL INFORMATION: M25.571 - Pain in right ankle and joints of right foot COMPARISON: Radiographs of the right ankle on April 19, 2025 TECHNIQUE: AP, lateral, and mortise views of the right ankle. FINDINGS: Redemonstration of mildly displaced oblique distal fibular fracture, without significant evidence of interval callus formation. No new acute fractures. Small bony fragment adjacent to the medial malleolus is unchanged. Joint space is preserved. Suggestion of a small ankle joint effusion. XR/XR ankle RT min 3V IMPRESSION: Unchanged distal fibular fracture, without evidence of significant callus formation. Electronically signed by: Kushal Burden MD 04/30/2025 01:39 PM EDT
--- NOTE | ~2025-04-30 | XR_ITS ---
EXAMINATION: XR ANKLE, RIGHT CLINICAL INFORMATION: S82.831A - Other fracture of upper and lower end of right fibula, initia... COMPARISON: Radiographs of the right ankle obtained earlier on the same day. TECHNIQUE: Internal and external stress test of the right ankle. FINDINGS: No significant interval change in the alignment of the ankle bones with internal or external stress test compared with the image obtained in neutral position earlier on the same day. XR/XR ankle RT 2V IMPRESSION: Unchanged alignment of the fibular fracture. Electronically signed by: Kushal Burden MD 04/30/2025 01:42 PM EDT
== END 2025-04-30 12:14 | disposition home or self-care (01) ==
LOC: HO.HOSX 12:13
PROVIDERS: Visit Provider Physician Assistant
DX: S82.831A Other fracture of upper and lower end of right fibula, initial encounter for closed fracture (principal); M25.571 Pain in right ankle and joints of right foot; W18.30XA Fall on same level, unspecified, initial encounter; X50.9XXA Other and unspecified overexertion or strenuous movements or postures, initial encounter
CPT/HCPCS: 73600; 73610; 99202

== ENCOUNTER 2025-05-15 12:08 | Outpatient (REF) | payer OTHER, SELFPAY ==
--- NOTE | ~2025-05-15 | XR_ITS ---
EXAMINATION: XR ANKLE, RIGHT CLINICAL INFORMATION: M25.571 - Pain in right ankle and joints of right foot COMPARISON: None available. TECHNIQUE: AP, lateral, and mortise views of the right ankle. FINDINGS: There is an oblique fracture involving the distal fibular metadiaphysis, cephalad to the syndesmotic ligaments. Ankle mortise is congruent. Talar dome is intact. There is no widening of the syndesmosis. There is small osteophyte involving inferior fibula. There is a small cortical density located between talus and medial malleolus. There are small calcaneal spurs. XR/XR ankle RT min 3V IMPRESSION: There is fracture of the distal fibular metadiaphysis cephalad to the syndesmosis. There is no widening of the syndesmosis. Small density located between the talus and medial malleolus could represent a small avulsion fracture. Electronically signed by: Gt Ayala MD 05/15/2025 03:34 PM EDT
== END 2025-05-15 12:09 | disposition home or self-care (01) ==
LOC: HO.HOSX 12:08
PROVIDERS: Visit Provider Physician Assistant
DX: S82.831A Other fracture of upper and lower end of right fibula, initial encounter for closed fracture (principal); M25.571 Pain in right ankle and joints of right foot; X58.XXXA Exposure to other specified factors, initial encounter
CPT/HCPCS: 73610; 99212

== ENCOUNTER 2025-05-15 15:20 | Outpatient (AMB) | payer OTHER, SELFPAY ==
--- OUTSIDE RECORDS SUMMARY | 2025-05-10 23:59 | XMS_ITS | Continuity of Care Document ---
Author Organization [facility] Address [address] [place] [address]- Care Team Providers Care Sky Diver Name Role Phone Kianna AGRCIA, Madeline Garcia Primary Care Physic andres [place] [facility] [place] - 05/[place]/25 [facility] [address], [place] [address] Attending Physician: Not on Staff, Attending MD Referring Physician: Kianna GARCIA, Madeline Garcia Encounter Type: Pre Office Visit Allergies, Adverse Reactions, Alerts Substance Criticality Severity [...] Refills, Maintenance, 09/29/23 5:10:00 PM EST, Aerosol, [facility] #[id number], Partial fill upon patient request if the [...] 0 Refills, Maintenance, 11/04/24 8:09:00 PM EST, [facility] #[id number], 30, USE 2 INHALATIONS BY MOUTH TWICE [...] 0 Refills, Maintenance, 04/09/25 8:06:00 AM EDT, [facility] #[id number], 175, cm, 02/13/25 15:05:00 EDT, Height Start Date: 04/09/25 Status: Ordered Quantity: 33.5 Unit: g Repeat number: 1 amLODIPine 5 mg oral tablet 1 tablet, By Mouth, Daily, # 90 tablet, 1 Refills, Maintenance, 03/27/25 9:44:00 AM EDT, [facility] #[id number], 175, cm, 02/13/25 15:05:00 EDT, Height Start Date: 03/27/25 Status: Ordered Quantity: 90.0 Unit: tablet Repeat number: 1 cholestyramine 4 gm/5 gm oral powder for reconstitution 1 pack/packet, By Mouth, 2 times a day, # 60 pack/packet, 11 Refills, Maintenance, 03/13/23 9:25:00 AM EDT, REC Powder, [id number], 175.3, cm, 01/03/23 14:03:00 EDT, Height Start Date: 03/13/23 Stop Date: 03/07/24 Status: Ordered Quantity: 60.0 Unit: pack/packet Repeat number: 12 diazepam 10 mg oral tablet 10 mg, 1, tablet, By Mouth, 3 times a day, may fill at a lesser amount [employer] 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 Refills 0, Maintenance, 03/12/24 6:28:00 AM EDT, Route to Pharmacy Electronically, [facility] #[id number], 175, cm, 11/29/23 12:13:00 EST, Height Start Date: 03/12/24 Stop Date: 04/09/24 Status: Ordered Quantity: 84.0 Unit: tablet Repeat number: 1 diazepam 10 mg oral tablet 10 mg, 1, tablet, By Mouth, 3 times a day, # 84 tablet, Refills 0, Tot. Refills 0, Maintenance, 09/03/24 12:53:00 PM EST, Route to Pharmacy Electronically, [facility] #[id number], 175, cm, 04/29/24 12:53:00 EDT, Height Start Date: 09/03/24 Stop Date: 10/01/24 Status: Ordered Quantity: 84.0 Unit: tablet Repeat number: 1 diazepam 10 mg oral tablet 10 mg, 1, tablet, By Mouth, Every 8 hours, # 84 tablet, Refills 0, Tot. Refills 0, Maintenance, 01/29/25 5:48:00 PM EDT, Route to Pharmacy Electronically, [facility] #[id number], 175, cm, 11/28/2512:33:00 EST, Height Start Date: 01/29/25 Stop Date: 02/26/25 Status: Ordered Quantity: 84.0 Unit: tablet Repeat number: 1 Flonase Allergy Relief 50 mcg/inh nasal spray See Instructions, 50 mcg Daily, # 16 Gm, 1 Refills, Maintenance, 07/05/23 8:42:00 PM EDT, [facility] #[id number], Partial fill upon patient request if the prescription is for a schedule II opioid drug., 175.3, cm, 01/03/23 14:03:00 EDT, Height Start Date: 07/05/23 Status: Ordered Quantity: 16.0 Unit: g Repeat number: 2 Flovent HFA 110 mcg/inh inhalation aerosol 2 puffs, Inhalation, 2 times a day, # 12 Gm, 3 Refills, Maintenance, 02/08/22 2:29:00 PM EDT, Aerosol, [facility] #[id number], Partial fill upon patient request if the prescription is for a schedule II opioid drug., 175.3, cm, 06/02/21 13:48:00 EDT, Height Start Date: 02/08/22 Status: Ordered Quantity: 12.0 Unit: g Repeat number: 4 Golytely - oral powder for reconstitution 240 mL, By Mouth, Every 10 minutes, # 1 each, 0 Refills, Maintenance, 04/29/24 1:19:00 PM EDT, REC Powder, [facility] #[id number], Partial fill upon patient request if the [...] kit, 5 Refills, Maintenance, 02/10/25 1:07:00 PMEDT, [facility] #[id number], Partial fill upon patient request if the prescription is for a schedule II opioid drug., 175, cm, 11/28/24 13:33:00 EST, Height Start Date: 02/10/25 Status: Ordered Quantity: 1.0 Unit: kit Repeat number: 6 hydrochlorothiazide-lisinopril 12.5 mg-20 mg oral tablet 1 tablet, By Mouth, Daily, # 90 tablet, 1 Refills, Maintenance, 09/12/24 4:12:00 PM EST, [facility] #[id number], 90, TAKE 1 TABLET BY MOUTH DAILY, 175, cm, 04/29/24 12:53:00 EDT, Height Start Date: 09/12/24 Status: Ordered Quantity: 90.0 Unit: tablet Repeat number: 1 hydrochlorothiazide-lisinopril 12.5 mg-20 mg oral tablet See Instructions, TAKE 1 TABLET BY MOUTH DAILY, # 90 tablet, 0 Refills, Maintenance, 03/27/25 9:58:00AM EDT, [facility] #[id number], 90, TAKE 1 TABLET BY MOUTH DAILY, 175, cm, 02/13/25 15:05:00 EDT, Height Start Date: 03/27/25 Status: Ordered Quantity: 90.0 Unit: tablet Repeat number: 1 Lyrica 225 mg oral capsule 1 capsule = 225 mg, By Mouth, 2 times a day, for 84 days, masspat checked DNF:03/27/2025, # 168 capsule, 1 Refills, Hard Stop 08/28/25 9:36:00 AM EST, 03/13/25 9:36:00 AM EDT, Capsule, [facility] #[id number], 175, cm, 02/13/25 15:05:00 EDT, Height Start Date: 03/13/25 Stop Date: 08/28/25 Status: Ordered Quantity: 168.0 Unit: capsule Repeat number: 2 Lyrica 225 mg oral capsule 1 capsule = 225 mg, By Mouth, 2 times a day, for 84 days, masspat checked DNF:01/02/2025, # 168 capsule, 1 Refills, Hard Stop 06/12/25 6:12:00 PM EDT, 12/26/24 6:12:00 PM EDT, Capsule, [facility] #[id number], 175, cm, 11/28/24 13:33:00 EST, Height Start Date: 12/26/24 Stop Date: 06/12/25 Status: Ordered Quantity: 168.0 Unit: capsule Repeat number: 2 Lyrica 225 mg oral capsule 1 capsule = 225 mg, By Mouth, 2 times a day, masspat checked ok to fill early due to travel, # 168 capsule, 0 Refills, Maintenance, 03/25/25 1:47:00 PM EDT, Capsule, [facility] #[id number], 175, cm, 02/13/25 15:05:00 EDT, Height Start Date: 03/25/25 Stop Date: 06/17/25 Status: Ordered Quantity: 168.0 Unit: capsule Repeat number: 1 methadone 10 mg oral tablet See Instructions, 2 tablet By Mouth in the morning. 1 tablet at lunch time, and 1 tablet at bedtimefor 14 days. Diagnosis: Chronic pain, # 56 tablet, 0 Refills, Maintenance, 04/07/25 10:08:00 AM EDT,[facility] #[id number], 175, cm, 02/13/25 15:05:00 EDT, Height Start Date: 04/07/25 Status: Ordered Quantity: 56.0 Unit: tablet Repeat number: 1 Indications: Unspecified abdominal pain; methadone 10 mg oral tablet See Instructions, 2 tablet By Mouth in the morning. 1 tablet at lunch time, and 1 tablet at bedtimefor 14 days. Diagnosis: Chronic pain, # 56 tablet, 0 Refills, Maintenance, 05/05/25 12:10:00 PM EDT,[facility] #[id number], 175, cm, 02/13/25 15:05:00 EDT, Height Start Date: 05/05/25 Status: Ordered Quantity: 56.0 Unit: tablet Repeat number: 1 Indications: Unspecified abdominal pain; oxyCODONE 20 mg oral tablet 1 tablet = 20 mg, By Mouth, 4 times a day, PRN Pain , Moderate, for 14 days, # 56 tablet, 0 Refills, Hard Stop 05/19/25 12:11:00 PM EDT, 05/05/25 12:11:00 PM EDT, [facility] #[id number], MassPAT checked, 175, cm, 02/13/25 15:05:00 EDT, Height Start Date: 05/05/25 Stop Date: 05/19/25 Status: Ordered Quantity: 56.0 Unit: tablet Repeat [...] AWAKE FOR 4 DAYS, # 5 Gm, 3 Refills, Maintenance, 05/07/25 11:52:00 AM EDT, [facility] #[id number], 30, APPLY TOPICALLY TO THE AFFECTED AREA EVERY 2 HOURS WHILE AWAKE FOR 4 DAYS, 175, cm, 02/13/25 15:05:00 EDT, Height Start Date: 05/07/25 Status: Ordered Quantity: 5.0 Unit: g Repeat number: 4 penciclovir 1% topical cream See Instructions, APPLY TO THE AFFECTED AREA TOPICALLY EVERY 2 HOURS WHILE AWAKE FOR 4 DAYS, # 5 Gm, 0 Refills, Maintenance, 11/25/24 12:15:00 PM EST, [facility] #[id number], 7, APPLY TO THE AFFECTED AREA TOPICALLY EVERY 2 HOURS WHILE AWAKE FOR 4 DAYS, 175, cm, 04/29/24 12:53:00 EDT, Height Start Date: 11/25/24 Status: Ordered Quantity: 5.0 Unit: g Repeat number: 1 penciclovir 1% topical cream See Instructions, APPLY TO THE AFFECTED AREA TOPICALLY EVERY 2 HOURS WHILE AWAKE FOR 4 DAYS, # 5 Gm, 0 Refills, Maintenance, 03/13/25 1:25:00 AM EDT, [facility] #[id number], 30, APPLY TO THE AFFECTED AREA TOPICALLY EVERY 2 HOURS WHILE AWAKE FOR 4 DAYS, 175, cm, 02/13/25 15:05:00 EDT, Height Start Date: 03/13/25 Status: Ordered Quantity: 5.0 Unit: g Repeat number: 1 sertraline 100 mg oral tablet 1 tablet, By Mouth, Daily, # 90 tablet, 6 Refills, Maintenance, 03/04/24 10:15:00 AM EDT, [facility] #[id number], 175, cm, 11/29/23 12:13:00 EST, Height Start Date: 03/04/24 Status: Ordered Quantity: 90.0 Unit: tablet Repeat number: 1 SUMAtriptan 100 mg oral tablet 1 tablet, By Mouth, Daily, PRN NEEDED FOR MIGRAINE MAY REPEAT DOSE AFTER 2 HOURS UP TO A MAX OF 2, # 9 tablet, 3 Refills, Maintenance, 12/30/24 12:40:00 PM EDT, [facility] #[id number], 175, cm,11/28/24 13:33:00 EST, Height Start Date: 12/30/24 Status: Ordered Quantity: 9.0 Unit: tablet Repeat number: 4 tirzepatide 7.5 mg/0.5 mL subcutaneous solution = 7.5 mg, Subcutaneous Injection, Every week, rotate injection sites, # 4 each, 3 Refills, Maintenance, 05/02/25 9:32:00 AM EDT, Solution, [facility] #[id number], Partial fill upon patient requestif the prescription is for a schedule II opioid drug., 175, cm, 02/13/25 15:05:00 EDT, Height Start Date: 05/02/25 Status: Ordered Quantity: 4.0 Unit: each Repeat number: 4 tubing for nebulizer tubing [...] 12:50:00 PM EST, Route to Pharmacy Electronically, [facility] #[id number], 175, cm, 04/29/24 12:53:00 EDT, Height Start Date: 10/03/24 Stop Date: 10/06/24 Status: Ordered Quantity: 6.0 Unit: tablet Repeat number: 1 Ventolin HFA 108 mcg/inh inhalation aerosol with adapter 2 puffs, Inhalation, Every 4 hours, PRN NEEDED FOR WHEEZING 1 FOR WORK AND 1 FOR HOME, # 36 Gm, 3 Refills, Maintenance, 11/11/24 1:07:00 PM EST, [facility] #[id number], 175, cm, 04/29/24 12:53:00 EDT, Height Start Date: 11/11/24 Status: Ordered Quantity: 36.0 Unit: g Repeat number: 1 Vitamin D3 50,000 intl units oral capsule 1 capsule, By Mouth, Every week, # 4 capsule, 5 Refills, Maintenance, 08/28/24 6:38:00 AM EST, [facility] #[id number], 175, cm, 04/29/24 12:53:00 EDT, Height Start Date: 08/28/24 Status: Ordered Quantity: 4.0 Unit: capsule Repeat number: 6 Zepbound Pen 10 mg/0.5 mL subcutaneous solution = 10 mg, Subcutaneous Injection, Every week, rotate injection sites, # 2 mL, 2 Refills, Maintenance, 05/08/25 12:22:00 PM EDT, Solution, [facility] #[id number], Partial fill upon patient request if the prescription is for a schedule II opioid drug., 175, cm, 02/13/25 15:05:00 EDT, Height Start Date: 05/08/25 Status: Ordered Quantity: 2.0 Unit: mL Repeat number: 3 Zepbound Pen 7.5 mg/0.5 mL subcutaneous solution = 7.5 mg, Subcutaneous Injection, Every week, rotate injection sites, # 2 mL, 2 Refills, Maintenance, 04/03/25 4:01:00 PM EDT, Solution, [facility] #[id number], Partial fill upon patient request if the [...] related to Crohn's [facility] 7since [place] [id number] 810/13 Social History Social History Type Response Smoking Status Former smoker; Other : quit 2011; entered on: 05/27/14 Sex Female Sex Representation Female (finding) Patient Care team information Care Team Personnel Name: Kianna GARCIA, Madeline Garcia Position: [facility] Physician - Primary Care Member Role: PCP Address: [address] [address]- [place] [employer]: Name: Theresa Clinton NP Position: [facility] Associate Professional Member Role: Primary Care Nurse Address: [address] [place] [address] Drive [address] [place] [address]- [place] [employer]: Name: Jaiden Estevez RN Position: [facility] RN Member Role: Primary Care Nurse Name: Perlita Acevedo RN Position: [facility] ED RN W/OE and Tasks Member Role: Primary Care Nurse Name: Lety Gutierrez RN Position: [facility] AMB Nurse Member Role: Primary Care Nurse Care Team Related Persons Name: VESTA STAFFORD Name: RUY LOUISE Name: ERIN GLEASON Insurance Providers Guarantor name: ASAD IBAN Aireon Plan Information #: 1 Payer: [facility] Payer Identifier: GENE Member Number: [id number] Group Number: [id number] Subscriber Identifier: [id number] Relationship to Subscriber: self Coverage Type: Medicare Managed Care (Includes Medicare Advantage Plans) Coverage Verification Date: GENE Telecom: NA Address: NA
--- OUTSIDE RECORDS SUMMARY | 2025-05-15 15:22 | XMS_ITS | Clinical Summary ---
Author Organization [facility] Address [address] [facility] ([place], [place]) [address] [place] [id number] Phone Care Team Providers Care Roll Forger Name Role Phone Lisbet Pepper MD Primary [...] Medical Devices Not on file Care Teams Roll Forger Relationship Specialty Start Date End Date Lisbet Pepper MD PCP - General 09/28/17 Additional Source Comments The information contained in this document represents components of the legal health record. It is not the complete legal health record.[facility]
--- NOTE | 2025-05-15 15:26 | A.OFFVIS_ITS ---
Vital Signs 05/15/25 15:31 Height 5 ft 9 in Weight 200 lb BMI 29.5 Intake Visit Reasons: OV f/u-Closed FC of distal end of RT ankle Intake Note: Pretty is a 54 year old female who presents today for a follow up of right ankle fracture, DOI 04/18/25. At her last visit patient was hesitant to go into a cast despite providers preference and was placed in a walking boot with restrictions of toe-touch weight-bearing for transfers only and needs to wear the boot at all times. She was instructed to follow up in 2 weeks with x-rays. Patient reports she is doing, states no pain where her fracture is. She has discomfort and points to the area of the mortise joint. Allergies acetaminophen (From [facility]) Allergy (Unknown, Verified 05/15/25 15:34) STOMACH UPSET aspirin (ASPIRIN) Allergy (Unknown, Verified 05/15/25 15:34) STOMACH UPSET dichloralphenazone (From [facility]) Allergy (Unknown, Verified 05/15/25 15:34) STOMACH UPSET NSAIDS (Non-Steroidal Anti-Inflamma (NSAIDS) Allergy (Unknown, Verified 05/15/25 15:34) STOMACH UPSET From KEFLEX Allergy (Unknown, Uncoded 05/15/25 15:34) STOMACH UPSET From [facility] Allergy (Unknown, Uncoded 05/15/25 15:34) STOMACH UPSET HPI HPI OV f/u-Closed FC of distal end of RT ankle: Details: 54-year-old female returns to the office today for a follow-up right ankle distal fibular fracture. At the patient's last visit I recommended a cast nonweightbearing and she chose to go in a boot and understood the risks associated with this. Today she comes in wearing the boot and states she has no pain and is doing well. 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 Neurovascularly intact. Results Reviewed Results Reviewed: X-rays of the right ankle obtained in the office today and reviewed by me show a stable distal fibular fracture with intact mortise. Assessment & Plan Assessment & Plan (1) Closed fracture of distal end of right fibula: Code(s): S82.831A - Other fracture of upper and lower end of right fibula, initial encounter for closed fracture Category: Medical Qualifiers: Encounter type: initial encounter Fracture morphology: unspecified fracture morphology Qualified Code(s): S82.831A - Other fracture of upper and lower end of right fibula, initial encounter for closed fracture Plan: I explained to the patient the imaging studies do reveal a stable fracture pattern however she needs to continue wearing the boot at all times with ambulation. She did request to transition to an ankle brace which I advised against. I reminded her she should really be in a cast nonweightbearing but because she declines the cast she can continue with the boot weightbearing as tolerated. She will see me back in 2 weeks with repeat x-rays, sooner if needed. Orders: Orders XR ankle RT min 3V Today M25.571 - Pain in right ankle and joints of right foot Coding Level of Care Code Global (47828) Diagnoses Closed fracture of distal end of right fibula S82.831A Encounter type: initial encounter Fracture morphology: unspecified fracture morphology
[2025-05-15 15:31] VITALS: BMI 29.5
== END 2025-05-15 15:43 | disposition home or self-care (01) ==
LOC: HO.HOS 15:20
PROVIDERS: PCP Family Medicine; Visit Provider Physician Assistant
DX: S82.891A Other fracture of right lower leg, initial encounter for closed fracture (principal)
CPT/HCPCS: 99213

== ENCOUNTER → 2025-05-15 15:22 | Outpatient (BNV) | payer OTHER, SELFPAY | PROVIDERS: Visit Provider Radiology Diagnostic Radiology | DX: S82.431A Displaced oblique fracture of shaft of right fibula, initial encounter for closed fracture (principal) | CPT/HCPCS: 73610 ==

== ENCOUNTER 2025-05-30 06:41 | Outpatient (REF) | payer OTHER, SELFPAY ==
--- NOTE | ~2025-05-30 | XR_ITS ---
EXAMINATION: XR ANKLE, RIGHT CLINICAL INFORMATION: M25.571 - Pain in right ankle and joints of right foot COMPARISON: May 15, 2025. TECHNIQUE: AP, lateral, and mortise views of the right ankle. FINDINGS: Faint callus formation with persistent 2 mm gap between the fragments in the distal diaphysis of the fibula. There is a 7 mm bone fragment in the posterior aspect of the fracture. No subcutaneous emphysema. No periosteal bone reaction or callus formation in the medial malleolus. Exostosis at the Achilles tendon insertion. XR/XR ankle RT min 3V IMPRESSION: Minimal healing/callus formation, fracture distal diaphysis right fibula. Electronically signed by: Nirav Avalos MD 05/30/2025 01:24 PM EDT
--- OUTSIDE RECORDS SUMMARY | 2025-05-30 06:47 | XMS_ITS | Clinical Summary ---
Author Organization [facility] Address [address] [facility] [address] [place] [phone] Phone Care Team Providers Care Complaint Investigator Name Role Phone Lisbet Pepper MD Primary [...] 2021 ZOSTER VACCINES (1 of 2) 2021 INFLUENZA VACCINE (#1) 2025 COVID-19 VACCINE (3 - 2024-2 6 season) 2025 04/13/2021, 03/15/2021 HEPATITIS A VACCINES Aged Out [...] Medical Devices Not on file Care Teams Complaint Investigator Relationship Specialty Start Date End Date Lisbet Pepper MD PCP - General 09/28/17 Additional Source Comments The information contained in this document represents components of the legal health record. It is not the complete legal health record.[facility]
== END 2025-05-30 06:42 | disposition home or self-care (01) ==
LOC: HO.HOSX 06:41
PROVIDERS: Visit Provider Physician Assistant
DX: S82.831D Other fracture of upper and lower end of right fibula, subsequent encounter for closed fracture with routine healing (principal); X58.XXXD Exposure to other specified factors, subsequent encounter
CPT/HCPCS: 73610; 99212

== ENCOUNTER 2025-05-30 13:09 | Outpatient (AMB) | payer OTHER, SELFPAY ==
--- NOTE | 2025-05-30 13:26 | A.OFFVIS_ITS ---
Vital Signs 05/30/25 13:27 Height 5 ft 9 in Weight 200 lb BMI 29.5 Intake Visit Reasons: OV f/u-Closed FC of distal end of RT ankle Intake Note: Pretty is a 54 year old female who presents today for a follow up of right ankle fracture, DOI 04/18/25. Patient reports that she is doing well, states that she does not have any pain or concerns today. Allergies acetaminophen (From [facility]) Allergy (Unknown, Verified 05/30/25 13:30) STOMACH UPSET aspirin (ASPIRIN) Allergy (Unknown, Verified 05/30/25 13:30) STOMACH UPSET dichloralphenazone (From [facility]) Allergy (Unknown, Verified 05/30/25 13:30) STOMACH UPSET NSAIDS (Non-Steroidal Anti-Inflamma (NSAIDS) Allergy (Unknown, Verified 05/30/25 13:30) STOMACH UPSET From KEFLEX Allergy (Unknown, Uncoded 05/30/25 13:30) STOMACH UPSET From MIDRIN Allergy (Unknown, Uncoded 05/30/25 13:30) STOMACH UPSET HPI HPI OV f/u-Closed FC of distal end of RT ankle: Details: 54-year-old female returns to the office today for a follow-up right distal fibular fracture date of injury 04/18/2025. At her last visit she was instructed to continue with using the boot. She presents today wearing regular street shoes. She states she has not worn the boot in a while and denies pain. HPI Comments Details: patient comes in today without her boot on. She states it broke and has not been using it for about a week. 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 Neurovascularly intact. Results Reviewed Results Reviewed: X-rays of the right ankle obtained in the office today and reviewed by me show a stable distal fibular fracture with intact mortise, small evidence of healing.. Assessment & Plan Assessment & Plan (1) Closed fracture of distal end of right fibula: Code(s): S82.831A - Other fracture of upper and lower end of right fibula, initial encounter for closed fracture Category: Medical Qualifiers: Encounter type: initial encounter Fracture morphology: unspecified fracture morphology Qualified Code(s): S82.831A - Other fracture of upper and lower end of right fibula, initial encounter for closed fracture Plan: I explained to the patient at length yet again she needs to continue using caution with weight-bearing activities as this is a fracture that was initially recommended to be nonweightbearing in a cast which she declined. I did give her a lace-up ankle brace to use for stability and put an order in for physical therapy. I did explain any type of impact activities could put excess strain on the fracture and worsen the injury. We would like to see her back in 6 weeks with new x-rays, sooner if needed. Orders: Orders PT Evaluation and Treatment 05/30/25 S82.831A - Other fracture of upper and lower end of right fibula, initial encounter for closed fracture XR ankle RT min 3V 05/30/25 M25.571 - Pain in right ankle and joints of right foot Coding Level of Care Code Global (46535) Diagnoses Closed fracture of distal end of right fibula S82.831A Encounter type: initial encounter Fracture morphology: unspecified fracture morphology
[2025-05-30 13:27] VITALS: BMI 29.5
== END 2025-05-30 13:49 | disposition home or self-care (01) ==
LOC: HO.HOS 13:10
PROVIDERS: PCP Family Medicine; Visit Provider Physician Assistant
DX: S82.831A Other fracture of upper and lower end of right fibula, initial encounter for closed fracture (principal)
CPT/HCPCS: 99213

== ENCOUNTER → 2025-05-30 13:11 | Outpatient (BNV) | payer OTHER, SELFPAY | PROVIDERS: Visit Provider Radiology Diagnostic Radiology | DX: S82.831G Other fracture of upper and lower end of right fibula, subsequent encounter for closed fracture with delayed healing (principal) | CPT/HCPCS: 73610 ==

== ENCOUNTER 2025-07-11 20:09 | Emergency (ER) | payer OTHER, SELFPAY ==
--- NOTE | ~2025-07-11 | XR_ITS ---
CLINICAL HISTORY: Pain 4 view right knee Comparison: 04/19/2025 Findings: No fractures or dislocations. No significant loss of joint space, osteophytes, or erosions. No joint effusion. No radiopaque foreign body. Enthesopathy at the insertion of the quadriceps tendon. IMPRESSION: 1. No acute findings. This document has been electronically signed by: Inder Hayward MD on 07/11/2025 22:59:20
[2025-07-11 20:27] VITALS: BP 112/80; BP 131/69; PULSE 70; PULSE 80; RESP 18; TEMP 36.5; O2SAT 94; O2SAT 96; BMI 29.0
--- NOTE | 2025-07-11 20:36 | ED_ITS ---
HPI - General Adult General Chief complaint: Extremity Injury, Lower Stated complaint: R knee pain Time Seen by Provider: 07/11/25 20:24 Source: patient, EMS, RN notes reviewed and old records reviewed Mode of arrival: EMS Limitations: no limitations History of Present Illness ED Provider: JENI Urrutia HPI narrative: 54-year-old female with medical history of chrons disease presents to ED by EMS due to R knee pain. Patient states that she was watching a football game and sitting in bleachers she attempted to pivot and felt the right knee come out of place and becomes stuck in flexion, she is unable to straighten the knee. Patient states she has a history of frequent Knee dislocation on this side however usually goes back into place on its own. Patient states her knee cu rrently feels stuck in a flexed position. MD complaint: R knee pain Related Data Home Medications ?Medication ?Instructions ?Recorded ?Confirmed albuterol sulfate 90 mcg/actuation 2 puff inhalation Q 4H PRN wheezing 04/30/25 aerosol inhaler (Ventolin HFA) amlodipine 5 mg tablet 5 mg PO DAILY 04/30/25 diazepam 10 mg tablet 10 mg PO Q8H 04/30/25 lisinopril 20 1 tab PO DAILY 04/30/25 mg-hydrochlorothiazide 12.5 mg tablet methadone 10 mg tablet mg PO DAILY 04/30/25 oxycodone 20 mg tablet 20 mg PO QID PRN moderate pa in 04/30/25 pantoprazole 40 mg tablet,delayed 40 mg PO BID 5 release pregabalin 225 mg capsule 225 mg PO BID 04/30/25 sertraline 100 mg tablet 100 mg PO DAILY 04/30/25 tirzepatide (weight loss) 7.5 7.5 mg subcut QWEEK 03/19 mg/0.5 mL subcutaneous pen injector (Zepbound) Previous Rx's ?Medication ?Instructions ?Recorded acetaminophen 500 mg capsule 1,000 mg (2 x 500 mg) PO .q8 PRN 04/19/25 fever or pain #30 caps Allergies Allergy/AdvReac Type Severity Reaction Status Date / Time acetaminophen (From MIDRIN) Allergy Unknown STOMACH Verified 07/11/25 20:29 UPSET aspirin (ASPIRIN) Allergy Unknown STOMACH Verified 07/11/25 20:29 UPSET dichloralphenazone (From Allergy Unknown STOMACH Verified 07/11/25 20:29 MIDRIN) UPSET NSAIDS (Non-Steroidal Allergy Unknown STOMACH Verified 07/11/25 20:29 Anti-Inflamma (NSAIDS) UPSET From KEFLEX Allergy Unknown STOMACH Uncoded 07/11/25 20:29 UPSET From MIDRIN Allergy Unknown STOMACH Uncoded 07/11/25 20:29 UPSET Review of Systems Review of Systems: CONST: Negative for fever, body aches and chills. HENT: Negative for neck pain/stiffness, headache, congestion, sore throat, swelling. EYES: Negative for discharge/pain or vision changes. RESP: Negative for cough/hemoptysis and shortness of breath. CV: Negative chest pain, difficulty breathing, palpitations. ABD: Negative pain, nausea, vomiting. : Negative increase frequency, dysuria, blood in urine or stool. MUSC: Negative for muscle aches, edema. R knee pain SKIN: Negative rash, lesions/sores. NEURO: Negative headache, dizziness, weakness. 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 HEENT: ?NC, AT. MMM. EOMI, clear conjunctiva, oropharynx clear. NECK: ?Supple without lymphadenopathy.? No stiffness or restricted ROM. HEART:? Normal rate and regular rhythm, normal S1/S1, no m/r/g LUNGS:? CTAB, moving air well. No crackles or wheezes are heard. ABDOMEN: ?Soft, nontender, nondistended with good bowel sounds heard. BACK: No CVAT, no obvious deformity. EXTREMITIES: ?Without cyanosis, clubbing or edema. R knee TTP of anterior and medial aspect of the patella, knee is currently in a flexed position and she is unable to extend the knee, I do not appreciate any anatomical abnormalities, as the patella appears to be in the correct anatomical position. NEUROLOGICAL: ?Grossly nonfocal. Alert and oriented, moving all 4 extremities. Observed to ambulate with normal gait. Skin: ?Warm and dry without any rash. Medications Administered Discontinued Medications Generic Name Dose Route Start Last Admin Trade Name Donaldoq PRN Reason Stop Dose Admin Acetaminophen 975 mg 07/11/25 21:21 07/11/25 21:32 Acetaminophen 325 Mg Tablet PO 07/11/25 21:22 975 mg ONCE ONE Administration Morphine Sulfate 2 mg 07/11/25 21:21 07/11/25 21:32 Morphine Sulfate 4 Mg/Ml Cartridge IM 07/11/25 21:22 2 mg ONCE ONE Administration Protocol Medical Decision Making Medical Decision Making MDM Narrative: 54-year-old female with medical history of chrons disease presents to ED by EMS due to R knee pain. Patient states that she was watching a football game and sitting in bleachers she attempted to pivot and felt the right knee come out of place and becomes stuck in flexion, she is unable to straighten the knee. Patient states she has a history of frequent Knee dislocation on this side however usually goes back into place on its own. Patient states her knee currently feels stuck in a flexed position. VS on initial observation- on physical exam R knee TTP of anterior and medial aspect of the patella, knee is currently in a flexed position and she is unable to extend the knee, I do not appreciate any anatomical abnormalities, as the patella appears to be in the correct anatomical position. XR R knee negative for fracture or dislocation. Patient presented with significant pain to the right knee, in a flexed position. Patient stated she believe the right knee was ?out of place?, and was unable to straight in the knee. Patient was given 2 mg IM morphine for pain control, and was able to straighten the leg out for XR imaging which was negative for fracture or dislocation. Patient now able to perform ROM without pain. Patient states she has a history of frequent dislocation of the right knee, has follow up with [facility] orthopedics in July for further evaluation. Patient feels well enough for home care. I counseled patient on strict return precautions, patient is in agreement with the plan. Differential Diagnosis Differential Diagnoses: The differential diagnosis associated with the presentation includes Patella fracture Patella dislocation Patella Croton Patella baja muscle spasm Admission/Observation Consideration of admission/observation: Escalation of care including admission/observation considered Lab Data MDM Lab Attestation statement: I reviewed the patient's lab results. Independent Interpretation I performed an independent interpretation of an: Plain X-Ray Interpretation: I personally interpreted the XR R knee which was negative for fracture or dislocation, I agree with the radiologist interpretation Radiology Impression Discussion of test interpretation with radiology: I have reviewed the radiologist's reading. Radiologist Impression: XR R knee Findings: No fractures or dislocations. No significant loss of joint space, osteophytes, or erosions. No joint effusion. No radiopaque foreign body. Enthesopathy at the insertion of the quadriceps tendon. IMPRESSION: 1. No acute findings. This document has been electronically signed by: Inder Hayward MD on 07/11/2025 22:59:20 Dictated By: Inder Hayward MD Signed By: <Electronically signed by Inder Hayward MD in OV> 07/11/25 2300 External Record Review External record reviewed: Inpatient record, Office record and Outpatient record Chronic Conditions Patient?s care impacted by: Hypertension Discharge Plan Discharge Clinical Impression: Right knee pain Patient Disposition: Home, Self-Care Additional Instructions: You were evaluated in the ED today due to right knee pain. The x-ray of your right knee was negative for fracture, or dislocation. To manage right knee pain at home you can take 500 mg of Tylenol every 6 hours, and apply compression bandage for more stability. You stated you have follow up with [facility]opedics in July, make sure you go to this appointment for further evaluation of instability in the right knee. Return to the emergency department if you experience worsening right knee pain, inability to move the right knee, or any new/worsening/concerning symptoms Prescriptions: No Action acetaminophen 500 mg capsule 1,000 mg PO .q8 PRN (Reason: fever or pain) Qty: 30 0RF lisinopril-hydrochlorothiazide 20-12.5 mg tablet 1 tab PO DAILY methadone 10 mg tablet PO DAILY sertraline 100 mg tablet 100 mg PO DAILY amlodipine 5 mg tablet 5 mg PO DAILY pantoprazole 40 mg tablet,delayed release (DR/EC) 40 mg PO BID diazepam 10 mg tablet 10 mg PO Q8H albuterol sulfate [Ventolin HFA] 90 mcg/actuation HFA aerosol inhaler 2 puff inhalation Q4H PRN (Reason: wheezing) pregabalin 225 mg capsule 225 mg PO BID oxycodone 20 mg tablet 20 mg PO QID PRN (Reason: moderate pain) Zepbound 7.5 mg/0.5 mL pen injector 7.5 mg subcut QWEEK Print Language: Indonesian
--- OUTSIDE RECORDS SUMMARY | 2025-07-11 20:59 | XMS_ITS | Clinical Summary ---
Author Organization [facility] Address [address] [facility] [address] [place] [id number] Phone Care Team Providers Care Acoustical Material Worker Name Role Phone Lisbet Pepper MD Primary [...] - 2024-2 6 season) 2025 04/13/2021, 03/15/2021 RSV VACCINE (1 - 1-dose 75+ series) 2046 HEPATITIS A VACCINES Aged Out No long [...] Medical Devices Not on file Care Teams Acoustical Material Worker Relationship Specialty Start Date End Date Lisbet Pepper MD PCP - General 09/28/17 Additional Source Comments The information contained in this document represents components of the legal health record. It is not the complete legal health record.[facility]
[2025-07-11 22:51] VITALS: BP 150/85; PULSE 63; RESP 16; TEMP 36.8; O2SAT 97
[2025-07-11 23:28] VITALS: BP 112/68; PULSE 67; TEMP 37.2; O2SAT 94
[2025-07-12 00:20] VITALS: BP 112/68; PULSE 67; RESP 20; TEMP 37.2; O2SAT 94
--- NOTE | 2025-07-12 00:20 | PC.NURSE ---
reviewed discharge instruction with pt. pt verbalized understanding, no sign of distress. notified primary nurse Rocio.
== END 2025-07-12 00:21 | disposition home or self-care (01) ==
PROVIDERS: Emergency Provider Emergency Medicine
DX: M25.561 Pain in right knee (principal)
CPT/HCPCS: 73564; 96372; 99284; J2270

== ENCOUNTER → 2025-07-11 22:10 | Outpatient (BNV) | payer OTHER, SELFPAY | PROVIDERS: Emergency Provider Emergency Medicine; Visit Provider Radiology Diagnostic Radiology | DX: M25.561 Pain in right knee (principal) | CPT/HCPCS: 73564 ==

== ENCOUNTER 2025-07-31 08:50 | Outpatient (REF) | payer OTHER, SELFPAY ==
--- OUTSIDE RECORDS SUMMARY | 2025-08-01 09:35 | XMS_ITS | Clinical Summary ---
Author Organization [facility] Address [email or web address] [facility] [address] [place] [phone] Phone Care Team Providers Care Trauma Coordinator Name Role Phone Lisbet Pepper MD Primary [...] Medical Devices Not on file Care Teams Trauma Coordinator Relationship Specialty Start Date End Date Lisbet Pepper MD [email or web address] PCP - General 09/28/17 Additional Source Comments The information contained in this document represents components of the legal health record. It is not the complete legal health record.[facility]
== END 2025-07-31 08:51 | disposition home or self-care (01) ==
LOC: HO.HOSX 08:50
PROVIDERS: Visit Provider Physician Assistant
DX: Z13.89 Encounter for screening for other disorder (principal)